=== PATIENT | male | born 1990 | race Caucasian/White ===

== ENCOUNTER 2016-08-02 13:15 | Emergency (ER) | payer BC ==
[~2016-08-02] VITALS: Ht 167.6 cm; Wt 55.3 kg
[~2016-08-02 13:15] MED LIST: INSU100I13 SQ; INSU100I17 SQ
--- NOTE | 2016-08-02 13:53 | PHYS DOC ---
Past Medical History Past Medical History: Diabetes-Type I Past Surgical History: No Surgical History Alcohol Use: Rarely Drug Use: Marijuana Social History Narrative: last use yesterday Adult General Chief Complaint Chief Complaint: BLOOD SUGAR PROBLEM HPI HPI 25-year-old male presenting to the emergency department with type 1 diabetes after having low blood sugars while working today. He reports taking glargine every morning. He also takes aspart as needed based on carbohydrates. He reports taking aspart insulin 10 units this morning with a meal. He was working outside when he suddenly felt confused dizzy and twitching. His parents brought him here today. They were able to give him a soda on the way and currently he is asymptomatic and feeling much better. He denies a history of suicidal or homicidal ideation. He denies intentionally taking extra insulin. Onset today. Location generalized. Duration intermittent. Alleviated by soda. Review of systems is negative for chest pain shortness of breath nausea vomiting fevers chills. All other review of systems is negative unless otherwise noted in history of present illness. Review of Systems Review of Systems SEE ABOVE. Allergies Allergies Allergies Coded Allergies Type Severity Reaction Last Updated Verified No Known Drug Allergies 10/09/14 No Physical Exam Physical Exam Constitutional: Well developed, well nourished, no acute distress, non-toxic appearance. Normal physical exam. HENT: Normocephalic, atraumatic, bilateral external ears normal, oropharynx moist, no oral exudates, nose normal. [] Eyes: PERRLA, EOMI, conjunctiva normal, no discharge. [] Neck: Normal range of motion, no tenderness, supple, no stridor. [] Cardiovascular:Heart rate regular rhythm, no murmur [] Lungs & Thorax: Bilateral breath sounds clear to auscultation [] Abdomen: Bowel sounds normal, soft, no tenderness, no masses, no pulsatile masses. [] Skin: Warm, dry, no erythema, no rash. [] Back: No tenderness, no CVA tenderness. [] Extremities: No tenderness, no cyanosis, no clubbing, ROM intact, no edema. [] Neurologic: Alert and oriented X 3, normal motor function, normal sensory function, no focal deficits noted. [] Psychologic: Affect normal, judgement normal, mood normal. [] Current Patient Data Vital Signs Vital Signs Date Time Temp Pulse Resp B/P Pulse Ox O2 Delivery O2 Flow Rate FiO2 3/25/17 13:28 97.8 82 20 158/88 100 Room Air 97.8 Lab Values Laboratory Tests Test 08/02/16 14:59 Glucose (Fingerstick) 235mg/dL (70-99) H EKG EKG [] Radiology/Procedures Radiology/Procedures [] Course & Med Decision Making Course & Med Decision Making Pertinent Labs and Imaging studies reviewed. (See chart for details) [] 25-year-old male presenting to the emergency department today with an episode of likely hypoglycemia. He had improved prior to arrival. Triage vital signs showed mild hypertension otherwise unremarkable. Physical exam unremarkable. Blood glucose obtained in the emergency department was improved. Patient was given a meal here in the emergency department subsequent discharged home to follow up with PCP over 2-3 days. Dragon Disclaimer Dragon Disclaimer This electronic medical record was generated, in whole or in part, using a voice recognition dictation system. Departure Departure Impression: Primary Impression: Hypoglycemia Disposition: HOME, SELF-CARE Condition: STABLE Referrals: NO PCP (PCP) ELSA BRUNO MD Patient Instructions: Diabetes and Foot Care, Diabetes, FAQs, How to Avoid Diabetes Problems, Hypoglycemia (Low Blood Sugar), Type 1 Diabetes Mellitus, Adult Additional Instructions: Thank you for allowing us to participate in your care today. Followup with your primary care physician in 3 days if your symptoms do not improve. If you do not have a primary care provider you can ask for a list of our primary care providers. Return to the emergency department you have any new or concerning findings. This should be evaluated by the primary care physician and any necessary consulting services for continued management within a few days after discharge. Return to emergency room if you have any new or concerning symptoms including but not limited to fever, chills, nausea, vomiting, intractable pain, any new rashes, chest pain, shortness of air, uncontrolled bleeding, difficulty breathing, and/or vision loss. You may have been prescribed medication that can change in your level of thinking and ability to operate machinery. These medications include hydrocodone and Ativan. Also, Benadryl has been known to do this as well. Be sure to check with your pharmacist and ask if the medications you've prescribed can affect your level of consciousness. I recommend not operating heavy machinery or driving while on medication such as these. IMMANUEL COLE MD Aug 02, 2016 13:53
[2016-08-02 15:06] VITALS: BP 163/85
== END 2016-08-02 15:25 | disposition home or self-care (01) ==
LOC: ER 13:15
DX: E10.649 Type 1 diabetes mellitus with hypoglycemia without coma (principal); F12.10 Cannabis abuse, uncomplicated
CPT/HCPCS: 82947; 99283; 99284

== ENCOUNTER 2016-09-09 07:52 | Inpatient (IN) | payer BC ==
[2016-09-09] VITALS (9 sets, daily range): BP systolic 89–118; BP diastolic 35–69
[~2016-09-09] VITALS: Ht 167.6 cm; Wt 56.7 kg
[2016-09-09] MEDS ORDERED: 0.9 % SODIUM CHLORIDE 10 ML DISP.SYRIN. IV PRN (08:15)
[2016-09-09] MEDS ORDERED: ONDANSETRON PF 4 MG/2 ML VIAL. IV ONE (08:15)
--- NOTE | 2016-09-09 08:16 | PHYS DOC ---
Past Medical History Past Medical History: Diabetes-Type I Past Surgical History: No Surgical History Alcohol Use: Rarely Drug Use: None Adult General Chief Complaint Chief Complaint: HYPERGLYCEMIA HPI HPI Patient is a 25 year old male who presents emergency room today with a complaint of "high blood sugar for 2-3 weeks and vomiting that began this morning". Patient is a type I diabetic who is typically on a dual regimen of insulin management. He states he's been on single regimen of Lantus for approximately 3 weeks. He states he began feeling ill/weak which is been progressive in nature for the past 5-6 days. Patient states he went to [facility] last night. He states that lab tests were drawn. On his account , he states that he did not receive any IV fluids or insulin. He states he was advised that he needed to be admitted to the hospital. Patient states he became upset as he thought that the management of his blood sugar was not being handled appropriately in the ER, so he left. Patient states that he began feeling nauseous and vomiting earlier this morning. He denies hematemesis or abdominal pain. He denies syncopal episodes or near syncope. He denies chest pain, palpitations, exertional dyspnea, orthopnea or PND. Patient does not currently have a primary care doctor as he is pending approval for . Review of Systems Review of Systems Constitutional: Denies fever or chills [] Eyes: Denies change in visual acuity, redness, or eye pain [] HENT: Denies nasal congestion or sore throat [] Respiratory: Denies cough or shortness of breath [] Cardiovascular: No additional information not addressed in HPI [] GI: Denies abdominal pain, nausea, vomiting, bloody stools or diarrhea [] : Denies dysuria or hematuria [] Musculoskeletal: Denies back pain or joint pain [] Integument: Denies rash or skin lesions [] Neurologic: Denies headache, focal weakness or sensory changes [] Endocrine: Denies polyuria or polydipsia [] Current Medications Current Medications Current Medications Medications (Trade) Dose Ordered Sig/Derrick Start Time Stop Time Status Last Admin Dose Admin Insulin Human Regular (Novolin R Iv Drip) 150 ml @ As Directed STK-MED ONCE 09/09/16 08:52 09/09/16 08:53 DC Ondansetron HCl 4 mg 4 mg 1X ONCE 09/09/16 08:15 09/09/16 08:16 DC 09/09/16 08:19 4 MG Sodium Bicarbonate 50 meq 1X ONCE 09/09/16 09:15 09/09/16 09:16 Sodium Chloride (Iv Sodium Chloride 0.9% 1000ml Bag) 1,000 ml @ 1,000 mls/hr Q1H 09/09/16 08:05 09/09/16 10:04 09/09/16 08:20 1,000 MLS/HR Sodium Chloride (Normal Saline Flush) 10 ml QSHIFT PRN 09/09/16 08:15 Allergies Allergies Allergies Coded Allergies Type Severity Reaction Last Updated Verified No Known Drug Allergies 10/09/14 No Physical Exam Physical Exam Constitutional: Well developed, well nourished, mild distress, non-toxic appearance. Acetone breath easily smelled. HENT: Normocephalic, atraumatic, bilateral external ears normal, oropharynx is tacky, no oral exudates, nose normal. Eyes: PERRLA, EOMI, conjunctiva normal, no discharge. [] Neck: Normal range of motion, no tenderness, supple, no stridor. [] Cardiovascular:Heart rate 128 with regular rhythm, no murmur Lungs & Thorax: There is no evidence of respiratory distress or respiratory fatigue. There is no posturing or sensory muscle use. Respiratory rate is 24. Lungs are clear to auscultation bilaterally with full inspiratory effort. Abdomen: Bowel sounds normal, soft, no tenderness, no masses, no pulsatile masses. Skin: Warm, dry, no erythema, no rash. [] Back: No tenderness, no CVA tenderness. [] Extremities: No tenderness, no cyanosis, no clubbing, ROM intact, no edema. Neurologic: Alert and oriented X 3, normal motor function, normal sensory function, no focal deficits noted. Psychologic: Affect normal, judgement normal, mood normal. [] Current Patient Data Vital Signs Vital Signs Date Time Temp Pulse Resp B/P Pulse Ox O2 Delivery O2 Flow Rate FiO2 09/09/16 07:57 98.0 120 18 138/81 99 Room Air 98.0 Lab Values Laboratory Tests Test 09/09/16 08:16 White Blood Count 19.4x10^3/uL (4.0-11.0) H Red Blood Count 5.40x10^6/uL (4.30-5.70) Hemoglobin 16.2g/dL (13.0-17.5) Hematocrit 50.4% (39.0-53.0) Mean Corpuscular Volume 93fL (79-100) Mean Corpuscular Hemoglobin 30pg (25-35) Mean Corpuscular Hemoglobin Concent 32g/dL (31-37) Red Cell Distribution Width 13.4% (11.5-14.5) Platelet Count 344x10^3/uL (140-400) Neutrophils (%) (Auto) 87% (31-73) H Lymphocytes (%) (Auto) 8% (24-48) L Monocytes (%) (Auto) 5% (0-9) Eosinophils (%) (Auto) 0% (0-3) Basophils (%) (Auto) 1% (0-3) Neutrophils # (Auto) 16.9x10^3uL (1.8-7.7) H Lymphocytes # (Auto) 1.5x10^3/uL (1.0-4.8) Monocytes # (Auto) 0.9x10^3/uL (0.0-1.1) Eosinophils # (Auto) 0.0x10^3/uL (0.0-0.7) Basophils # (Auto) 0.1x10^3/uL (0.0-0.2) Platelet Estimate Pending Urine Collection Type Unknown Urine Color Yellow Urine Clarity Clear Urine pH 5.0 Urine Specific [place] 1.025 Urine Protein Negativemg/dL (NEG-TRACE) Urine Glucose (UA) >=1000mg/dL (NEG) Urine Ketones (Stick) >=80mg/dL (NEG) Urine Blood Negative (NEG) Urine Nitrite Negative (NEG) Urine Bilirubin Negative (NEG) Urine Urobilinogen Dipstick 0.2mg/dL (0.2 mg/dL) Urine Leukocyte Esterase Negative (NEG) Urine RBC 0/HPF (0-2) Urine WBC 0/HPF (0-4) Urine Bacteria 0/HPF (0-FEW) Sodium Level 131mmol/L (136-145) L Potassium Level 5.5mmol/L (3.5-5.1) H Chloride Level 93mmol/L (98-107) L Carbon Dioxide Level 10mmol/L (21-32) *L Anion Gap 28 (6-14) H Blood Urea Nitrogen 22mg/dL (8-26) Creatinine 1.7mg/dL (0.7-1.3) H Estimated GFR (Cockcroft-Gault) 49.4 BUN/Creatinine Ratio 13 (6-20) Glucose Level 638mg/dL (70-99) *H Calcium Level 9.2mg/dL (8.5-10.1) Total Bilirubin 0.8mg/dL (0.2-1.0) Aspartate Amino Transferase (AST) 81U/L (15-37) H Alanine Aminotransferase (ALT) 262U/L (16-63) H Alkaline Phosphatase 208U/L (46-116) H Total Protein 8.4g/dL (6.4-8.2) H Albumin 4.0g/dL (3.4-5.0) Albumin/Globulin Ratio 0.9 (1.0-1.7) L Laboratory Tests 09/09/16 08:16 Laboratory Tests 09/09/16 08:16 EKG EKG [] Radiology/Procedures Radiology/Procedures [] Course & Med Decision Making Course & Med Decision Making Patient is in DKA. He is dehydrated with an elevated creatinine. He is hemodynamically stable and is overall medical condition is stable. Insulin drip was ordered as well as 2 Amps of sodium bicarbonate. 2 L of normal saline are being continuously infused here and he will stay on a maintenance IV solution of normal saline at 200 mL's per hour. Case was staffed with Dr. Barger. Patient will be admitted to the ICU for further management of his blood sugar. Dragon Disclaimer Dragon Disclaimer This electronic medical record was generated, in whole or in part, using a voice recognition dictation system. Departure Departure Impression: Primary Impression: DKA (diabetic ketoacidoses) Disposition: ADMITTED INPATIENT Admitting Physician: Felipa Barger Condition: STABLE Referrals: NO PCP (PCP) YADIRA IRELAND September 09, 2016 08:16
[2016-09-09] MEDS: IV NORMAL SALINE 1000ML BAG 1,000 ML IV SCH ×2 (08:20→09:05)
[2016-09-09 08:29] LABS: BASO # 0.1 x10^3/uL (0.0-0.2); BASO % 1 % (0-3); EOS % 0 % (0-3); HEMATOCRIT 50.4 % (39.0-53.0); HEMOGLOBIN 16.2 g/dL (13.0-17.5); LYMPH # 1.5 x10^3/uL (1.0-4.8); LYMPH % 8 % (24-48); MEAN CORPUSCULAR HEMOGLOBIN 30 pg (25-35); MEAN CORPUSCULAR HGB CONC 32 g/dL (31-37); MEAN CORPUSCULAR VOLUME 93 fL (79-100); MONO % 5 % (0-9); NEUT % 87 % (31-73); PLATELET COUNT 344 x10^3/uL (140-400); RED CELL DISTRIBUTION WIDTH 13.4 % (11.5-14.5); WHITE BLOOD COUNT 19.4 x10^3/uL (4.0-11.0)
[2016-09-09 08:32] LABS: BILIRUBIN,URINE NEGATIVE (NEG); GLUCOSE,URINE >=1000 mg/dL (NEG); NITRITE,URINE NEGATIVE (NEG); PROTEIN,URINE NEGATIVE (NEG-TRACE); UROBILINOGEN,URINE 0.2 mg/dL (0.2 mg/dL)
[2016-09-09 08:40] LABS: ALBUMIN/GLOBULIN RATIO 0.9 (1.0-1.7); CALCIUM 9.2 mg/dL (8.5-10.1); CREATININE 1.7 mg/dL (0.7-1.3); GFR 49.4; POTASSIUM 5.5 mmol/L (3.5-5.1); TOTAL BILIRUBIN 0.8 mg/dL (0.2-1.0); TOTAL PROTEIN 8.4 g/dL (6.4-8.2)
[2016-09-09 08:42] LABS: BACTERIA,URINE 0 /HPF (0-FEW); RBC,URINE 0 /HPF (0-2); WBC,URINE 0 /HPF (0-4)
[2016-09-09] MEDS ORDERED: INSULIN,REGULAR 150 UNIT DRIP 150 ML IV ONE ×2 (08:52→09:00)
--- NOTE | 2016-09-09 08:55 | ACF ---
Admission Forms Criteria DIABETES Clinical Indications for Admission to Inpatient Care (Place 'X' for any and all applicable criteria): Admission is indicated by presence of ALL (if I & II) or ANY ONE (if III or IV) of the following (1)(2)(3)(4): [X]I. Diabetes is uncontrolled as indicated by ANY ONE of the following: [ ]a) Diabetic ketoacidosis as indicated by ALL of the following (8): [ ]i) Hyperglycemia (eg, plasma glucose greater than 200 mg/ dL (11.1 mmol/L)) [ ]ii) Acidosis (eg, arterial pH less than 7.30, serum bicarbonate level less than 15 mEq/L (mmol/L)) [ ]iii) Moderate ketonuria or ketonemia [ ]b) Hyperglycemic hyperosmolar state as indicated by ALL of the following(9)(10): [ ]i) Neurologic dysfunction (eg, stupor, coma, hemiparesis , seizure)(13) [ ]ii) Plasma glucose greater than 600 mg/dL (33.3 mmol/L) [ ]iii) Serum osmolality greater than 320 mOsm/kg (mmol/kg) [X]c) Severe signs or symptoms secondary to hyperglycemia indicated by ANY ONE of the following: [ ]i) Altered mental status(10) [ ]ii) Significant hypovolemia or dehydration [ ]iii) Intractable nausea or vomiting [ ]iv) Unexplained fever or severe infection [X]v) Severe electrolyte abnormality (eg, hypokalemia, hyperkalemia, hypernatremia) [X]II. Management at other levels of care (Also use Diabetes: Observation Care as appropriate) is not feasible because of ANY ONE of the following: [X]a) Condition was not adequately corrected with treatment at other levels of care. [ ]b) Treatment at other levels of care is not appropriate because of condition severity (eg, hyperosmolar coma). [ ]III. Contraindications and/or Inappropriate clinical situations for Observational Care in patients with Diabetes, when ANY ONE of the following is required: [ ]a) Patient require specific diagnostic workup or therapeutic intervention 22 [ ]b) Patient with abnormal vital signs or altered mental status 23 [ ]IV. General contraindications and/or Inappropriate clinical situations for Observational Care in patients with Diabetes, when ANY ONE of the following is required: [ ]a) Prediction of prolongation of LOS based on ANY ONE of the following may be considered as a contraindication for observational care 2, 3, 4, 5, 6, 7, 8, 9, 10, 11 [ ]i) Age > 65 yrs. [ ]ii) Patient arriving by ambulance [ ]iii) Patient with high acuity [ ]iv) Patient requiring vital sign monitoring [ ]v) Patient on IV medication [ ]b) Systolic blood pressures 180mmHg 3,12 [ ]c) Patient with altered mental status including delirium and other alteration of consciousness, (3) [ ]d) Patient whose discharge disposition will be to a intermediate home or rehabilitation home should not be managed in Emergency Department Observation Unit. CMS rule requires 3 days hospital stay before such placement.3,13 [ ]e) Patient with failure to thrive due to broad array of etiologies 3,16,17 [ ]f) Inability to ambulate 3,14 Extended stay beyond goal length of stay may be needed for(3)(20): [ ]a) Treatment of precipitating causes [ ]b) Development of hypoglycemia [ ]c) Complications of treatment [ ]d) Complications of decompensated diabetes (eg, acute gastric dilatation, persistent metabolic or neurologic derangement) [ ]e) Active Comorbidities [ ]f) Older patients( 65 years or older) The original [employer] content created by [employer] has been revised. The portions of the content which have been revised are identified through the use of italic text or in bold,and [facility] has neither reviewed nor approved the modified material. All other unmodified content is copyright [employer]. Please see references footnoted in the original [facility] 2016 Admission Criteria Met?: Yes CANDY LYONS September 09, 2016 08:55
[2016-09-09] MEDS ORDERED: ONDANSETRON PF 4 MG/2 ML VIAL. IV PRN ×2 (09:15→14:45)
[2016-09-09] MEDS ORDERED: SODIUM BICARB ADULT 8.4% 50 MEQ/50 ML DISP.SYRIN. IV ONE (09:15)
[2016-09-09] MEDS ORDERED: DEXTROSE 50% 25 GM / 50ML DISP.SYRIN. IV PRN (09:15)
[2016-09-09 09:39] LABS: PLT ESTIMATE ADEQUATE (ADEQUATE)
[2016-09-09] MEDS ORDERED: IV NORMAL SALINE 1000ML BAG 1,000 ML IV SCH (10:00)
[2016-09-09] MEDS ORDERED: SODIUM BICARBONATE VIAL 50 MEQ in IV 1/2 NORMAL SALINE 1,000 ML IV PRN (11:09)
[2016-09-09] MEDS ORDERED: IV DEXTROSE 5 %-0.45 % NACL 1,000 ML IV SCH (11:12)
[2016-09-09] MEDS ORDERED: POTASSIUM CHLORIDE 10MEQ 100 ML IV PRN ×3 (11:15)
[2016-09-09] MEDS ORDERED: INSULIN REGULAR VIAL 150 UNIT in 0.9 % SODIUM CHLORIDE 150ML 150 ML IV PRN ×2 (11:15→15:00)
[2016-09-09 12:26] LABS: CREATININE 1.4 mg/dL (0.7-1.3); GFR 61.7; POTASSIUM 4.2 mmol/L (3.5-5.1)
[2016-09-09 12:32] LABS: ALBUMIN 3.2 g/dL (3.4-5.0); DIRECT BILIRUBIN 0.2 mg/dL (0.0-0.2); MAGNESIUM 2.1 mg/dL (1.8-2.4); PHOSPHORUS 3.2 mg/dL (2.6-4.7); TOTAL BILIRUBIN 0.5 mg/dL (0.2-1.0); TOTAL PROTEIN 6.8 g/dL (6.4-8.2)
[2016-09-09] MEDS ORDERED: IV DEXTROSE 5% - 0.9 % NACL 1,000 ML IV SCH (12:45)
[2016-09-09 12:55] LABS: BASE EXCESS COOX -8 mmol/L (-3-3); CARBON MONOXIDE 0.4 % (0.0-1.9); FIO2 COOX 21; HCO3 COOX 16 mmol/L (21-28); METHEMOGLOBIN 0.4 % (0.0-1.9); OXYHEMOGLOBIN 96.7 %; PCO2 COOX 28 mmHg (35-46); PO2 COOX 97 mmHg (85-108); SAT O2 COOX 98 % (92-99); TOTAL HEMOGLOBIN 14.2 g/dL
--- NOTE | 2016-09-09 14:42 | PDOC1 ---
History and Physical Date of Admission Date of Admission 09/09/16 Identification/Chief Complaint Chief Complaint N/V , weakness Problems: Source Source: Chart review, Patient History of Present Illness History of Present Illness 25yo M, DM1 , has insurance problem now, non compliance before, comes for N/V and weakness. Pt home insulin is 35u lantus at night and 10u aspart tid, and saying hba1c 1-2 years ago was 9. HE said he has one year insulin prescription from PCP, but likely 2/2 insurance issues, and not taking the regimen for a few weeks , and ran out of all aspart yesterday. N/V, weakness for 2 days. in ER, found DKA. clinically looks good in ICU now with insulin drip. Past Medical History Endocrine: Diabetes Past Surgical History Past Surgical History: No pertinent history Family History Family History: Hypertension Social History Smoke: No ALCOHOL: none Drugs: None Current Problem List Problem List Problems Medical Problems: (1) DKA (diabetic ketoacidoses) Status: Acute Current Medications Current Medications Current Medications Medications (Trade) Dose Ordered Sig/Derrick Start Time Stop Time Status Last Admin Dose Admin Dextrose 12.5 gm 12.5 gm PRN Q15MIN PRN 09/09/16 09:15 Dextrose/Sodium Chloride 1,000 ml @ 250 mls/hr Q4H 09/09/16 12:45 09/09/16 12:59 250 MLS/HR Insulin Human Regular (Novolin R Iv Drip) 150 ml @ As Directed STK-MED ONCE 09/09/16 08:52 09/09/16 08:53 DC Insulin Human Regular 150 unit/ Sodium Chloride 151.5 ml @ 0 mls/hr CONT PRN PRN 09/09/16 11:15 Insulin Human Regular/Sodium Chloride (Novolin R Vial/ Iv Normal Saline 150ml) 151.5 ml @ 0 mls/hr CONT PRN 09/09/16 15:00 09/09/16 15:00 DC Ondansetron HCl 4 mg 4 mg PRN Q8HRS PRN 09/09/16 09:15 09/10/16 09:14 Potassium Chloride (KCl Premix 10meq) 100 ml @ 100 mls/hr Q1H 09/09/16 14:00 09/09/16 15:59 Sodium Bicarbonate 50 meq/Sodium Chloride 1,050 ml @ 500 mls/hr Q2H6M PRN 09/09/16 11:09 Sodium Bicarbonate 50 meq 1X ONCE 09/09/16 09:15 09/09/16 09:16 DC 09/09/16 09:36 50 MEQ Sodium Chloride 1,000 ml @ 200 mls/hr Q5H 09/09/16 10:00 09/10/16 09:59 Sodium Chloride (Iv Sodium Chloride 0.9% 1000ml Bag) 1,000 ml @ 1,000 mls/hr Q1H 09/09/16 08:05 09/09/16 10:04 DC 09/09/16 08:20 1,000 MLS/HR Sodium Chloride 10 ml 10 ml QSHIFT PRN 09/09/16 08:15 Allergies Allergies Allergies Coded Allergies Type Severity Reaction Last Updated Verified No Known Drug Allergies 10/09/14 No ROS Review of System CONSTITUTIONAL: No fever or chills EYES: No recent changes SKIN: No rash or itching CARDIOVASCULAR: No chest pain, syncope, palpitations, or edema RESPIRATORY: No SOB or cough GASTROINTESTINAL: No nausea, vomiting or abdominal pain NEUROLOGICAL: No headaches or weakness ENDOCRINE: No cold or heat intolerance GENITOURINARY: No urgency or frequency of urination MUSCULOSKELETAL: No back pain or joint pain LYMPHATICS: No enlarged lymph nodes PSYCHIATRIC: No anxiety or depression Physical Exam Physical Exam GEN.: No apparent distress. Alert and oriented. HEENT: Head is normocephalic, atraumatic NECK: Supple. LUNGS: Clear to auscultation. HEART: RRR, S1, S2 present. Peripheral pulses intact ABDOMEN: Soft, nontender. Positive bowel sounds. EXTREMITIES: Without any cyanosis. NEUROLOGIC: Normal speech, normal tone PSYCHIATRIC: Normal affect, normal mood. SKIN: No ulcerations Vitals Vitals Vital Signs Date Time Temp Pulse Resp B/P Pulse Ox O2 Delivery O2 Flow Rate FiO2 09/09/16 13:45 98.0 115 92/35 99 98.0 09/09/16 13:30 16 Room Air Labs Labs Laboratory Tests Test 09/09/16 08:16 09/09/16 10:00 09/09/16 11:03 09/09/16 11:09 White Blood Count 19.4x10^3/uL (4.0-11.0) Red Blood Count 5.40x10^6/uL (4.30-5.70) Hemoglobin 16.2g/dL (13.0-17.5) Hematocrit 50.4% (39.0-53.0) Mean Corpuscular Volume 93fL (79-100) Mean Corpuscular Hemoglobin 30pg (25-35) Mean Corpuscular Hemoglobin Concent 32g/dL (31-37) Red Cell Distribution Width 13.4% (11.5-14.5) Platelet Count 344x10^3/uL (140-400) Neutrophils (%) (Auto) 87% (31-73) Lymphocytes (%) (Auto) 8% (24-48) Monocytes (%) (Auto) 5% (0-9) Eosinophils (%) (Auto) 0% (0-3) Basophils (%) (Auto) 1% (0-3) Neutrophils # (Auto) 16.9x10^3uL (1.8-7.7) Lymphocytes # (Auto) 1.5x10^3/uL (1.0-4.8) Monocytes # (Auto) 0.9x10^3/uL (0.0-1.1) Eosinophils # (Auto) 0.0x10^3/uL (0.0-0.7) Basophils # (Auto) 0.1x10^3/uL (0.0-0.2) Segmented Neutrophils % 89% (35-66) Band Neutrophils % 1% (0-9) Lymphocytes % 6% (24-48) Monocytes % 4% (0-10) Platelet Estimate Adequate (ADEQUATE) Urine Collection Type Unknown Urine Color Yellow Urine Clarity Clear Urine pH 5.0 Urine Specific [place] 1.025 Urine Protein Negativemg/dL (NEG-TRACE) Urine Glucose (UA) >=1000mg/dL (NEG) Urine Ketones (Stick) >=80mg/dL (NEG) Urine Blood Negative (NEG) Urine Nitrite Negative (NEG) Urine Bilirubin Negative (NEG) Urine Urobilinogen Dipstick 0.2mg/dL (0.2 mg/dL) Urine Leukocyte Esterase Negative (NEG) Urine RBC 0/HPF (0-2) Urine WBC 0/HPF (0-4) Urine Bacteria 0/HPF (0-FEW) Sodium Level 131mmol/L (136-145) Potassium Level 5.5mmol/L (3.5-5.1) Chloride Level 93mmol/L (98-107) Carbon Dioxide Level 10mmol/L (21-32) Anion Gap 28 (6-14) Blood Urea Nitrogen 22mg/dL (8-26) Creatinine 1.7mg/dL (0.7-1.3) Estimated GFR (Cockcroft-Gault) 49.4 BUN/Creatinine Ratio 13 (6-20) Glucose Level 638mg/dL (70-99) Calcium Level 9.2mg/dL (8.5-10.1) Total Bilirubin 0.8mg/dL (0.2-1.0) Aspartate Amino Transf (AST/SGOT) 81U/L (15-37) Alanine Aminotransferase (ALT/SGPT) 262U/L (16-63) Alkaline Phosphatase 208U/L (46-116) Total Protein 8.4g/dL (6.4-8.2) Albumin 4.0g/dL (3.4-5.0) Albumin/Globulin Ratio 0.9 (1.0-1.7) Ethyl Alcohol Level < 10mg/dL (0-10) Glucose (Fingerstick) 277mg/dL (70-99) 198mg/dL (70-99) O2 Saturation 98% (92-99) Arterial Blood pCO2 at Patient Temp 28mmHg (35-46) Arterial Blood pO2 at Patient Temp 97mmHg (85-108) Arterial Blood HCO3 16mmol/L (21-28) Arterial Blood Base Excess -8mmol/L (-3-3) Oxyhemoglobin 96.7% Methemoglobin 0.4% (0.0-1.9) Carbon Monoxide, Quantitative 0.4% (0.0-1.9) FiO2 21 Test 09/09/16 11:45 09/09/16 12:00 09/09/16 13:11 09/09/16 14:16 Sodium Level 139mmol/L (136-145) Potassium Level 4.2mmol/L (3.5-5.1) Chloride Level 104mmol/L (98-107) Carbon Dioxide Level 19mmol/L (21-32) Anion Gap 16 (6-14) Blood Urea Nitrogen 17mg/dL (8-26) Creatinine 1.4mg/dL (0.7-1.3) Estimated GFR (Cockcroft-Gault) 61.7 Glucose Level 158mg/dL (70-99) Calcium Level 8.0mg/dL (8.5-10.1) Phosphorus Level 3.2mg/dL (2.6-4.7) Magnesium Level 2.1mg/dL (1.8-2.4) Total Bilirubin 0.5mg/dL (0.2-1.0) Direct Bilirubin 0.2mg/dL (0.0-0.2) Aspartate Amino Transf (AST/SGOT) 46U/L (15-37) Alanine Aminotransferase (ALT/SGPT) 208U/L (16-63) Alkaline Phosphatase 156U/L (46-116) Total Protein 6.8g/dL (6.4-8.2) Albumin 3.2g/dL (3.4-5.0) Lipase 199U/L (73-393) Glucose (Fingerstick) 152mg/dL (70-99) 136mg/dL (70-99) 144mg/dL (70-99) Laboratory Tests Test 09/09/16 08:16 09/09/16 10:00 09/09/16 11:03 09/09/16 11:09 White Blood Count 19.4x10^3/uL (4.0-11.0) Red Blood Count 5.40x10^6/uL (4.30-5.70) Hemoglobin 16.2g/dL (13.0-17.5) Hematocrit 50.4% (39.0-53.0) Mean Corpuscular Volume 93fL (79-100) Mean Corpuscular Hemoglobin 30pg (25-35) Mean Corpuscular Hemoglobin Concent 32g/dL (31-37) Red Cell Distribution Width 13.4% (11.5-14.5) Platelet Count 344x10^3/uL (140-400) Neutrophils (%) (Auto) 87% (31-73) Lymphocytes (%) (Auto) 8% (24-48) Monocytes (%) (Auto) 5% (0-9) Eosinophils (%) (Auto) 0% (0-3) Basophils (%) (Auto) 1% (0-3) Neutrophils # (Auto) 16.9x10^3uL (1.8-7.7) Lymphocytes # (Auto) 1.5x10^3/uL (1.0-4.8) Monocytes # (Auto) 0.9x10^3/uL (0.0-1.1) Eosinophils # (Auto) 0.0x10^3/uL (0.0-0.7) Basophils # (Auto) 0.1x10^3/uL (0.0-0.2) Segmented Neutrophils % 89% (35-66) Band Neutrophils % 1% (0-9) Lymphocytes % 6% (24-48) Monocytes % 4% (0-10) Platelet Estimate Adequate (ADEQUATE) Urine Collection Type Unknown Urine Color Yellow Urine Clarity Clear Urine pH 5.0 Urine Specific [place] 1.025 Urine Protein Negativemg/dL (NEG-TRACE) Urine Glucose (UA) >=1000mg/dL (NEG) Urine Ketones (Stick) >=80mg/dL (NEG) Urine Blood Negative (NEG) Urine Nitrite Negative (NEG) Urine Bilirubin Negative (NEG) Urine Urobilinogen Dipstick 0.2mg/dL (0.2 mg/dL) Urine Leukocyte Esterase Negative (NEG) Urine RBC 0/HPF (0-2) Urine WBC 0/HPF (0-4) Urine Bacteria 0/HPF (0-FEW) Sodium Level 131mmol/L (136-145) Potassium Level 5.5mmol/L (3.5-5.1) Chloride Level 93mmol/L (98-107) Carbon Dioxide Level 10mmol/L (21-32) Anion Gap 28 (6-14) Blood Urea Nitrogen 22mg/dL (8-26) Creatinine 1.7mg/dL (0.7-1.3) Estimated GFR (Cockcroft-Gault) 49.4 BUN/Creatinine Ratio 13 (6-20) Glucose Level 638mg/dL (70-99) Calcium Level 9.2mg/dL (8.5-10.1) Total Bilirubin 0.8mg/dL (0.2-1.0) Aspartate Amino Transf (AST/SGOT) 81U/L (15-37) Alanine Aminotransferase (ALT/SGPT) 262U/L (16-63) Alkaline Phosphatase 208U/L (46-116) Total Protein 8.4g/dL (6.4-8.2) Albumin 4.0g/dL (3.4-5.0) Albumin/Globulin Ratio 0.9 (1.0-1.7) Ethyl Alcohol Level < 10mg/dL (0-10) Glucose (Fingerstick) 277mg/dL (70-99) 198mg/dL (70-99) O2 Saturation 98% (92-99) Arterial Blood pCO2 at Patient Temp 28mmHg (35-46) Arterial Blood pO2 at Patient Temp 97mmHg (85-108) Arterial Blood HCO3 16mmol/L (21-28) Arterial Blood Base Excess -8mmol/L (-3-3) Oxyhemoglobin 96.7% Methemoglobin 0.4% (0.0-1.9) Carbon Monoxide, Quantitative 0.4% (0.0-1.9) FiO2 21 Test 09/09/16 11:45 09/09/16 12:00 09/09/16 13:11 09/09/16 14:16 Sodium Level 139mmol/L (136-145) Potassium Level 4.2mmol/L (3.5-5.1) Chloride Level 104mmol/L (98-107) Carbon Dioxide Level 19mmol/L (21-32) Anion Gap 16 (6-14) Blood Urea Nitrogen 17mg/dL (8-26) Creatinine 1.4mg/dL (0.7-1.3) Estimated GFR (Cockcroft-Gault) 61.7 Glucose Level 158mg/dL (70-99) Calcium Level 8.0mg/dL (8.5-10.1) Phosphorus Level 3.2mg/dL (2.6-4.7) Magnesium Level 2.1mg/dL (1.8-2.4) Total Bilirubin 0.5mg/dL (0.2-1.0) Direct Bilirubin 0.2mg/dL (0.0-0.2) Aspartate Amino Transf (AST/SGOT) 46U/L (15-37) Alanine Aminotransferase (ALT/SGPT) 208U/L (16-63) Alkaline Phosphatase 156U/L (46-116) Total Protein 6.8g/dL (6.4-8.2) Albumin 3.2g/dL (3.4-5.0) Lipase 199U/L (73-393) Glucose (Fingerstick) 152mg/dL (70-99) 136mg/dL (70-99) 144mg/dL (70-99) VTE Prophylaxis Ordered VTE Prophylaxis Devices: Yes VTE Pharmacological Prophylaxi: Yes Assessment/Plan Assessment/Plan 1 DKA 2 sirs 2/2 1 3. HYPERkalemia 4. pseudohyponatremia with 1 5. casandra on CKD 2-3, dehydration, vasomotor 6. elevated transminitis 2/2 uncontrolled dm1 likely plan: icu care with insulin drip labs q4-6h ivf, npo for now check hba1c dvt ppx ARMOND KING MD September 09, 2016 14:42
[2016-09-09] MEDS ORDERED: ACETAMINOPHEN 325 MG TABLET. PO PRN (14:45)
[2016-09-09] MEDS: POTASSIUM CHLORIDE 10MEQ 100 ML IV SCH ×2 (15:00→15:14)
[2016-09-09] MEDS ORDERED: ENOXAPARIN 40 MG/0.4 ML SYRINGE. SQ SCH (15:00)
[2016-09-09 16:16] LABS: BARBITURATES NEG (NEG); BENZODIAZEPINES NEG (NEG); CANNABINOIDS POS (NEG); COCAINE NEG (NEG); METHADONE NEG (NEG); OPIATES NEG (NEG); PHENCYCLIDINE NEG (NEG)
[2016-09-09 16:29] LABS: CALCIUM 7.6 mg/dL (8.5-10.1); CREATININE 1.3 mg/dL (0.7-1.3); GFR 67.3; PHOSPHORUS 2.9 mg/dL (2.6-4.7)
[2016-09-09] MEDS ORDERED: INSULIN DETEMIR 300 UNITS/3 ML INSULN.PEN. SQ SCH (17:00)
[2016-09-09] MEDS: INSULIN ASPART 300 UNITS/3 ML INSULN.PEN SQ SCH ×2 (17:00→17:55)
[2016-09-10 02:51] VITALS: BP 105/47
[2016-09-10] MEDS: DEXTROSE 50% 25 GM / 50ML DISP.SYRIN. IV PRN ×2 (03:00→06:42)
[2016-09-10 06:27] LABS: CREATININE 1.1 mg/dL (0.7-1.3); GFR 81.6; POTASSIUM 3.3 mmol/L (3.5-5.1)
[2016-09-10 06:36] LABS: ALBUMIN 2.7 g/dL (3.4-5.0); DIRECT BILIRUBIN 0.2 mg/dL (0.0-0.2); TOTAL BILIRUBIN 0.4 mg/dL (0.2-1.0); TOTAL PROTEIN 5.5 g/dL (6.4-8.2)
[2016-09-10 07:00] VITALS: BP 109/64
[2016-09-10] MEDS ORDERED: DEXTROSE 50% 25 GM / 50ML DISP.SYRIN. IV ONE (07:00)
[2016-09-10] MEDS: INSULIN ASPART 300 UNITS/3 ML INSULN.PEN SQ SCH ×3 (07:30→12:00)
[2016-09-10] MEDS ORDERED: POTASSIUM CHLORIDE 20 MEQ TABLET.ER. PO ONE (10:00)
--- NOTE | 2016-09-10 10:31 | PDOC3 ---
Discharge Summary Visit Information Date of Admission: September 09, 2016 Date of Discharge: September 10, 2016 Admitting Diagnosis Comment: s/p DKA DM type 1 - missed insulin for 3 weeks Final Diagnosis Problems Medical Problems: (1) DKA (diabetic ketoacidoses) Status: Acute Brief Hospital Course Allergies Allergies Coded Allergies Type Severity Reaction Last Updated Verified No Known Drug Allergies 10/09/14 No Vital Signs Vital Signs Date Time Temp Pulse Resp B/P Pulse Ox O2 Delivery O2 Flow Rate FiO2 09/10/16 07:00 98.1 78 18 109/64 100 Room Air 98.1 Lab Results Laboratory Tests Test 09/09/16 08:16 09/09/16 10:00 09/09/16 11:03 09/09/16 11:09 White Blood Count 19.4x10^3/uL (4.0-11.0) Red Blood Count 5.40x10^6/uL (4.30-5.70) Hemoglobin 16.2g/dL (13.0-17.5) Hematocrit 50.4% (39.0-53.0) Mean Corpuscular Volume 93fL (79-100) Mean Corpuscular Hemoglobin 30pg (25-35) Mean Corpuscular Hemoglobin Concent 32g/dL (31-37) Red Cell Distribution Width 13.4% (11.5-14.5) Platelet Count 344x10^3/uL (140-400) Neutrophils (%) (Auto) 87% (31-73) Lymphocytes (%) (Auto) 8% (24-48) Monocytes (%) (Auto) 5% (0-9) Eosinophils (%) (Auto) 0% (0-3) Basophils (%) (Auto) 1% (0-3) Neutrophils # (Auto) 16.9x10^3uL (1.8-7.7) Lymphocytes # (Auto) 1.5x10^3/uL (1.0-4.8) Monocytes # (Auto) 0.9x10^3/uL (0.0-1.1) Eosinophils # (Auto) 0.0x10^3/uL (0.0-0.7) Basophils # (Auto) 0.1x10^3/uL (0.0-0.2) Segmented Neutrophils % 89% (35-66) Band Neutrophils % 1% (0-9) Lymphocytes % 6% (24-48) Monocytes % 4% (0-10) Platelet Estimate Adequate (ADEQUATE) Urine Collection Type Unknown Urine Color Yellow Urine Clarity Clear Urine pH 5.0 Urine Specific [place] 1.025 Urine Protein Negativemg/dL (NEG-TRACE) Urine Glucose (UA) >=1000mg/dL (NEG) Urine Ketones (Stick) >=80mg/dL (NEG) Urine Blood Negative (NEG) Urine Nitrite Negative (NEG) Urine Bilirubin Negative (NEG) Urine Urobilinogen Dipstick 0.2mg/dL (0.2 mg/dL) Urine Leukocyte Esterase Negative (NEG) Urine RBC 0/HPF (0-2) Urine WBC 0/HPF (0-4) Urine Bacteria 0/HPF (0-FEW) Sodium Level 131mmol/L (136-145) Potassium Level 5.5mmol/L (3.5-5.1) Chloride Level 93mmol/L (98-107) Carbon Dioxide Level 10mmol/L (21-32) Anion Gap 28 (6-14) Blood Urea Nitrogen 22mg/dL (8-26) Creatinine 1.7mg/dL (0.7-1.3) Estimated GFR (Cockcroft-Gault) 49.4 BUN/Creatinine Ratio 13 (6-20) Glucose Level 638mg/dL (70-99) Hemoglobin A1c 9.4% (4.8-5.6) Calcium Level 9.2mg/dL (8.5-10.1) Total Bilirubin 0.8mg/dL (0.2-1.0) Aspartate Amino Transf (AST/SGOT) 81U/L (15-37) Alanine Aminotransferase (ALT/SGPT) 262U/L (16-63) Alkaline Phosphatase 208U/L (46-116) Total Protein 8.4g/dL (6.4-8.2) Albumin 4.0g/dL (3.4-5.0) Albumin/Globulin Ratio 0.9 (1.0-1.7) Ethyl Alcohol Level < 10mg/dL (0-10) Glucose (Fingerstick) 277mg/dL (70-99) 198mg/dL (70-99) O2 Saturation 98% (92-99) Arterial Blood pCO2 at Patient Temp 28mmHg (35-46) Arterial Blood pO2 at Patient Temp 97mmHg (85-108) Arterial Blood HCO3 16mmol/L (21-28) Arterial Blood Base Excess -8mmol/L (-3-3) Oxyhemoglobin 96.7% Methemoglobin 0.4% (0.0-1.9) Carbon Monoxide, Quantitative 0.4% (0.0-1.9) FiO2 21 Test 09/09/16 11:45 09/09/16 12:00 09/09/16 13:10 09/09/16 13:11 Sodium Level 139mmol/L (136-145) Potassium Level 4.2mmol/L (3.5-5.1) Chloride Level 104mmol/L (98-107) Carbon Dioxide Level 19mmol/L (21-32) Anion Gap 16 (6-14) Blood Urea Nitrogen 17mg/dL (8-26) Creatinine 1.4mg/dL (0.7-1.3) Estimated GFR (Cockcroft-Gault) 61.7 Glucose Level 158mg/dL (70-99) Calcium Level 8.0mg/dL (8.5-10.1) Phosphorus Level 3.2mg/dL (2.6-4.7) Magnesium Level 2.1mg/dL (1.8-2.4) Total Bilirubin 0.5mg/dL (0.2-1.0) Direct Bilirubin 0.2mg/dL (0.0-0.2) Aspartate Amino Transf (AST/SGOT) 46U/L (15-37) Alanine Aminotransferase (ALT/SGPT) 208U/L (16-63) Alkaline Phosphatase 156U/L (46-116) Total Protein 6.8g/dL (6.4-8.2) Albumin 3.2g/dL (3.4-5.0) Lipase 199U/L (73-393) Glucose (Fingerstick) 152mg/dL (70-99) 136mg/dL (70-99) Nasal Screen MRSA (PCR) Negative (Negative) Test 09/09/16 14:16 09/09/16 14:45 09/09/16 15:19 09/09/16 16:05 Glucose (Fingerstick) 144mg/dL (70-99) 147mg/dL (70-99) Urine Opiates Screen Neg (NEG) Urine Methadone Screen Neg (NEG) Urine Barbiturates Neg (NEG) Urine Phencyclidine Screen Neg (NEG) Urine Amphetamine/Methamphetamine Neg (NEG) Urine Benzodiazepines Screen Neg (NEG) Urine Cocaine Screen Neg (NEG) Urine Cannabinoids Screen Pos (NEG) Urine Ethyl Alcohol Neg (NEG) Sodium Level 140mmol/L (136-145) Potassium Level 4.0mmol/L (3.5-5.1) Chloride Level 108mmol/L (98-107) Carbon Dioxide Level 23mmol/L (21-32) Anion Gap 9 (6-14) Blood Urea Nitrogen 12mg/dL (8-26) Creatinine 1.3mg/dL (0.7-1.3) Estimated GFR (Cockcroft-Gault) 67.3 Glucose Level 129mg/dL (70-99) Calcium Level 7.6mg/dL (8.5-10.1) Phosphorus Level 2.9mg/dL (2.6-4.7) Magnesium Level 2.0mg/dL (1.8-2.4) Test 09/09/16 17:47 09/09/16 21:16 09/09/16 22:42 09/10/16 02:55 Glucose (Fingerstick) 128mg/dL (70-99) 59mg/dL (70-99) 94mg/dL (70-99) 47mg/dL (70-99) Test 09/10/16 03:22 09/10/16 05:30 09/10/16 06:35 09/10/16 07:06 Glucose (Fingerstick) 105mg/dL (70-99) 28mg/dL (70-99) 137mg/dL (70-99) Sodium Level 138mmol/L (136-145) Potassium Level 3.3mmol/L (3.5-5.1) Chloride Level 106mmol/L (98-107) Carbon Dioxide Level 26mmol/L (21-32) Anion Gap 6 (6-14) Blood Urea Nitrogen 14mg/dL (8-26) Creatinine 1.1mg/dL (0.7-1.3) Estimated GFR (Cockcroft-Gault) 81.6 Glucose Level 48mg/dL (70-99) Calcium Level 8.0mg/dL (8.5-10.1) Total Bilirubin 0.4mg/dL (0.2-1.0) Direct Bilirubin 0.2mg/dL (0.0-0.2) Aspartate Amino Transf (AST/SGOT) 54U/L (15-37) Alanine Aminotransferase (ALT/SGPT) 160U/L (16-63) Alkaline Phosphatase 119U/L (46-116) Total Protein 5.5g/dL (6.4-8.2) Albumin 2.7g/dL (3.4-5.0) Test 09/10/16 08:04 Glucose (Fingerstick) 73mg/dL (70-99) Laboratory Tests Test 09/09/16 11:03 09/09/16 11:09 09/09/16 11:45 09/09/16 12:00 Glucose (Fingerstick) 198mg/dL (70-99) 152mg/dL (70-99) O2 Saturation 98% (92-99) Arterial Blood pCO2 at Patient Temp 28mmHg (35-46) Arterial Blood pO2 at Patient Temp 97mmHg (85-108) Arterial Blood HCO3 16mmol/L (21-28) Arterial Blood Base Excess -8mmol/L (-3-3) Oxyhemoglobin 96.7% Methemoglobin 0.4% (0.0-1.9) Carbon Monoxide, Quantitative 0.4% (0.0-1.9) FiO2 21 Sodium Level 139mmol/L (136-145) Potassium Level 4.2mmol/L (3.5-5.1) Chloride Level 104mmol/L (98-107) Carbon Dioxide Level 19mmol/L (21-32) Anion Gap 16 (6-14) Blood Urea Nitrogen 17mg/dL (8-26) Creatinine 1.4mg/dL (0.7-1.3) Estimated GFR (Cockcroft-Gault) 61.7 Glucose Level 158mg/dL (70-99) Calcium Level 8.0mg/dL (8.5-10.1) Phosphorus Level 3.2mg/dL (2.6-4.7) Magnesium Level 2.1mg/dL (1.8-2.4) Total Bilirubin 0.5mg/dL (0.2-1.0) Direct Bilirubin 0.2mg/dL (0.0-0.2) Aspartate Amino Transf (AST/SGOT) 46U/L (15-37) Alanine Aminotransferase (ALT/SGPT) 208U/L (16-63) Alkaline Phosphatase 156U/L (46-116) Total Protein 6.8g/dL (6.4-8.2) Albumin 3.2g/dL (3.4-5.0) Lipase 199U/L (73-393) Test 09/09/16 13:10 09/09/16 13:11 09/09/16 14:16 09/09/16 14:45 Nasal Screen MRSA (PCR) Negative (Negative) Glucose (Fingerstick) 136mg/dL (70-99) 144mg/dL (70-99) Urine Opiates Screen Neg (NEG) Urine Methadone Screen Neg (NEG) Urine Barbiturates Neg (NEG) Urine Phencyclidine Screen Neg (NEG) Urine Amphetamine/Methamphetamine Neg (NEG) Urine Benzodiazepines Screen Neg (NEG) Urine Cocaine Screen Neg (NEG) Urine Cannabinoids Screen Pos (NEG) Urine Ethyl Alcohol Neg (NEG) Test 09/09/16 15:19 09/09/16 16:05 09/09/16 17:47 09/09/16 21:16 Glucose (Fingerstick) 147mg/dL (70-99) 128mg/dL (70-99) 59mg/dL (70-99) Sodium Level 140mmol/L (136-145) Potassium Level 4.0mmol/L (3.5-5.1) Chloride Level 108mmol/L (98-107) Carbon Dioxide Level 23mmol/L (21-32) Anion Gap 9 (6-14) Blood Urea Nitrogen 12mg/dL (8-26) Creatinine 1.3mg/dL (0.7-1.3) Estimated GFR (Cockcroft-Gault) 67.3 Glucose Level 129mg/dL (70-99) Calcium Level 7.6mg/dL (8.5-10.1) Phosphorus Level 2.9mg/dL (2.6-4.7) Magnesium Level 2.0mg/dL (1.8-2.4) Test 09/09/16 22:42 09/10/16 02:55 09/10/16 03:22 09/10/16 05:30 Glucose (Fingerstick) 94mg/dL (70-99) 47mg/dL (70-99) 105mg/dL (70-99) Sodium Level 138mmol/L (136-145) Potassium Level 3.3mmol/L (3.5-5.1) Chloride Level 106mmol/L (98-107) Carbon Dioxide Level 26mmol/L (21-32) Anion Gap 6 (6-14) Blood Urea Nitrogen 14mg/dL (8-26) Creatinine 1.1mg/dL (0.7-1.3) Estimated GFR (Cockcroft-Gault) 81.6 Glucose Level 48mg/dL (70-99) Calcium Level 8.0mg/dL (8.5-10.1) Total Bilirubin 0.4mg/dL (0.2-1.0) Direct Bilirubin 0.2mg/dL (0.0-0.2) Aspartate Amino Transf (AST/SGOT) 54U/L (15-37) Alanine Aminotransferase (ALT/SGPT) 160U/L (16-63) Alkaline Phosphatase 119U/L (46-116) Total Protein 5.5g/dL (6.4-8.2) Albumin 2.7g/dL (3.4-5.0) Test 09/10/16 06:35 09/10/16 07:06 09/10/16 08:04 Glucose (Fingerstick) 28mg/dL (70-99) 137mg/dL (70-99) 73mg/dL (70-99) Brief Hospital Course Mr. Nixon is a 25 old male dx TYpe 1 since 2008, supposed to be on 34 lantus qdaily and novolog 10 TID, but missed for 3 weeks bec of finances, admitted for DKA., rsolved after overnight icu dka protocol, CAn be actually hypogolycemic, which translates to really non compliance that pushed him to dka PT seen and examined COunselled time 31 mins > 50% Discharge Information Condition at Discharge: Improved, Stable Disposition/Orders: D/C to Home Scheduled Insulin Aspart (Novolog Flexpen) 10 UNIT SQ TIDWMEALS (Reported) Insulin Aspart (Novolog Flexpen) 0-7 UNIT SQ TIDWMEALS (Reported) Insulin Glargine,Hum.rec.anlog (Lantus Solephraimar) 34 UNIT SQ DAILY AT 0900 ( Reported) SONAM BARNARD MD September 10, 2016 10:31
[2016-09-10 11:00] VITALS: BP 111/66
[2016-09-10 12:04] LABS: PH COOX 7.38 (7.35-7.45)
== END 2016-09-10 12:34 | disposition home or self-care (01) | DRG 637 ==
LOC: ER 07:52 → ED HOLD 08:57 → 1 WEST ICU 12:09 → 6 SOUTH 16:45
PROVIDERS: ADMIT Internal Medicine; ATTEND Internal Medicine
DX: E10.10 Type 1 diabetes mellitus with ketoacidosis without coma (principal); N17.0 Acute kidney failure with tubular necrosis; R65.10 Systemic inflammatory response syndrome (SIRS) of non-infectious origin without acute organ dysfunction; E10.22 Type 1 diabetes mellitus with diabetic chronic kidney disease; E87.5 Hyperkalemia; E86.0 Dehydration; R74.0 Nonspecific elevation of levels of transaminase and lactic acid dehydrogenase [LDH]; N18.3 Chronic kidney disease, stage 3 (moderate); Z82.49 Family history of ischemic heart disease and other diseases of the circulatory system; Z91.19 Patient's noncompliance with other medical treatment and regimen
CPT/HCPCS: 36415; 80048; 80053; 80076; 81001; 82805; 82947; 83036; 83690; 83735; 84100; 85007; 85027; 87040; 87086; 87641; 96365; 96375; G0480; G0481; J1650; J1815; J2405; J3480; J7030; J7042; 99285-25

== ENCOUNTER 2020-02-24 15:26 | Inpatient (IN) | payer BC ==
[~2020-02-24] VITALS: Ht 167.6 cm; Wt 56.0 kg
[2020-02-24 16:26] LABS: BASO # 0.1 x10^3/uL (0.0-0.2); BASO % 1 % (0-3); EOS # 0.1 x10^3/uL (0.0-0.7); EOS % 1 % (0-3); HEMATOCRIT 43.9 % (39.0-53.0); HEMOGLOBIN 14.8 g/dL (13.0-17.5); LYMPH # 1.5 x10^3/uL (1.0-4.8); LYMPH % 23 % (24-48); MEAN CORPUSCULAR HEMOGLOBIN 30 pg (25-35); MEAN CORPUSCULAR HGB CONC 34 g/dL (31-37); MEAN CORPUSCULAR VOLUME 89 fL (79-100); MONO # 0.4 x10^3/uL (0.0-1.1); MONO % 6 % (0-9); NEUT # 4.6 x10^3/uL (1.8-7.7); NEUT % 70 % (31-73); PLATELET COUNT 288 x10^3/uL (140-400); RED BLOOD COUNT 4.93 x10^6/uL (4.30-5.70); RED CELL DISTRIBUTION WIDTH 12.5 % (11.5-14.5); WHITE BLOOD COUNT 6.7 x10^3/uL (4.0-11.0)
[2020-02-24 16:50] LABS: CALCIUM 9.3 mg/dL (8.5-10.1); CREATININE 1.4 mg/dL (0.7-1.3); GFR 59.9; POTASSIUM 5.5 mmol/L (3.5-5.1)
[2020-02-24 16:53] LABS: ALBUMIN 4.5 g/dL (3.4-5.0); ALBUMIN/GLOBULIN RATIO 1.2 (1.0-1.7); TOTAL BILIRUBIN 0.9 mg/dL (0.2-1.0); TOTAL PROTEIN 8.3 g/dL (6.4-8.2)
[2020-02-24 17:14] LABS: BILIRUBIN,URINE NEGATIVE (NEG); CLARITY,URINE CLEAR; COLOR,URINE STRAW; NITRITE,URINE NEGATIVE (NEG); PROTEIN,URINE NEGATIVE (NEG-TRACE); UROBILINOGEN,URINE 0.2 mg/dL (0.2 mg/dL)
[2020-02-24 17:15] LABS: BACTERIA,URINE 0 /HPF (0-FEW); RBC,URINE RARE /HPF (0-2); WBC,URINE 0 /HPF (0-4)
--- NOTE | 2020-02-24 17:25 | RAD ---
KNEE RIGHT 4V History: Reason: pain / Spl. Instructions: / History: Technique: 4 views right knee. Comparison: None. Findings: Normal alignment. No fracture. No significant knee joint effusion. Soft tissues unremarkable. Impression: 1. No acute osseous abnormality. Electronically signed by: Kartik Kumar DO (02/24/2020 5:22 PM) [facility]
[2020-02-24] MEDS ORDERED: DEXTROSE 50% 25 GM / 50ML DISP.SYRIN. IV PRN (17:30)
[2020-02-24] MEDS ORDERED: INSULIN,REGULAR 100 UNIT DRIP 100 ML IV PRN (17:30)
[2020-02-24] MEDS ORDERED: IV NORMAL SALINE 1000ML BAG 1,000 ML IV SCH (17:36)
--- NOTE | 2020-02-24 17:36 | PDOC1 ---
History and Physical Date of Admission Date of Admission DATE: 02/24/20 TIME: 17:34 Identification/Chief Complaint Chief Complaint Weakness Source Source: Patient History of Present Illness History of Present Illness Mr Nixon is 29 yo type I diabetic, smoker who presents to the emergency room with weakness and nausea. He also complains of nausea polyuria polydipsia. Visual disturbances as well as right knee pain. No recent sick contacts. No dysuria no open wounds no cough COVID-19 contacts. He does note that he ran out of insulin last night. He has actually been taking NovoLog from a bowel that he got from a "friend of a friend". The insulin is never been refrigerated and he notes it was at least 4 months old. He has not seen a primary care doctor for years due to living [facility] to [facility]. $100 per month for insulin has kept him "strapped for álvarez." Glucose was too high to read this morning. He also has been having right knee pain for several weeks. He denies any injury. He is also having intermittent suicidal ideations with thoughts of overdosing on his insulin. Historically his home insulin is 35u lantus at night and 10u aspart tid, and saying hba1c 4 years ago was 9. Knee x-ray with no acute findings Labs significant for WBC 6.7, Hb 14.8, platelets 288, NA 127, K5.5, BUN 21, CR 1.4, lactate 2.2, glucose 898, AST 55, anion gap greater than 15 and positive for ketones in the urine. Admitted to ICU on insulin drip for further care. Past Medical History Endocrine: Diabetes Past Surgical History Past Surgical History: No pertinent history Family History Family History: Hypertension Social History Smoke: 1 pack per day ALCOHOL: rare Drugs: None Current Medications Current Medications Current Medications Insulin Human Regular 100 unit/ Sodium Chloride 101 ml @ 0 mls/hr CONT IV ; Start 02/24/20 at 17:30; Status UNV Dextrose (Dextrose 50%-Water Syringe) 12.5 gm PRN Q15MIN PRN IV LOW BLOOD SUGAR; Start 02/24/20 at 17:30; Status UNV Active Scripts Active Reported Novolog Flexpen (Insulin Aspart) 100 Unit/1 Ml Insuln.pen 0-7 Unit SQ TIDWMEALS Sliding Scale Insulin with meals: Take in addition to scheduled 10 units with meals, according to blood glucose. Blood glucose 70-150: None 151-200: 3 Units 201-250: 4 Units 251-300: 6 Units 301-350: 7 Units Lantus Solostar (Insulin Glargine,Hum.rec.anlog) 100 Unit/1 Ml Insuln.pen 34 Unit SQ DAILY AT 0900 Novolog Flexpen (Insulin Aspart) 100 Unit/1 Ml Insuln.pen 10 Unit SQ TIDWMEALS Allergies Allergies: Coded Allergies: No Known Drug Allergies (Unverified , 10/09/14) ROS General: YES: Fatigue, Malaise, Appetite; No: Chills, Night Sweats, Other PSYCHOLOGICAL ROS: YES: Anxiety, Depression, Suicidal ideation; No: Behavioral Disorder, Concentration difficultie, Decreased libido, Disorientation, Hallucinations, Hostility, Irritablity, Memory difficulties, Mood Swings, Obsessive thoughts, Physical abuse, Sexual abuse, Sleep disturbances, Other Eyes: Yes Blurry vision; No Decreased vision, No Double vision, No Dry eyes, No Excessive tearing, No Eye Pain, No Itchy Eyes, No Loss of vision, No Photophobia, No Scotomata, No Uses contacts, No Uses glasses, No Other HEENT: No: Heacaches, Visual Changes, Hearing change, Nasal congestion, Nasal discharge, Oral lesions, Sinus pain, Sore Throat, Epistaxis, Sneezing, Snoring, Tinnitus, Vertigo, Vocal changes, Other ALLERGY AND IMMUNOLOGY: No: Hives, Insect Bite Sensitivity, Itchy/Watery Eyes, Nasal Congestion, Post Nasal Drip, Seasonal Allergies, Other Hematological and Lymphatic: No: Bleeding Problems, Blood Clots, Blood Transfusions, Brusing, Night Sweats, Pallor, Swollen Lymph Nodes, Other ENDOCRINE: No: Breast Changes, Galactorrhea, Hair Pattern Changes, Hot Flashes, Malaise/lethargy, Mood Swings, Palpitations, Polydipsia/polyuria, Skin Changes, Temperature Intolerance, Unexpected Weight Changes, Other Breast: No New/Changing Breast Lumps, No Nipple changes, No Nipple discharge, No Other Respiratory: No: Cough, Hemoptysis, Orthopnea, Pleuritic Pain, Shortness of breath, SOB with excertion, Sputum Changes, Stridor, Tachypnea, Wheezing, Other Cardiovascular: No Chest Pain, No Palpitations, No Orthopnea, No Paroxysmal Noc. Dyspnea, No Edema, No Lt Headedness, No Other Gastrointestinal: Yes Nausea, Yes Abdominal Pain; No Vomiting, No Diarrhea, No Constipation, No Melena, No Hematochezia, No Other Genitourinary: No Dysuria, No Frequency, No Incontinence, No Hematuria, No Retention, No Discharge, No Urgency, No Pain, No Flank Pain, No Other, No , No , No , No , No , No , No Musculoskeletal: No Gait Disturbance, No Joint Pain, No Joint Stiffness, No Joint Swelling, No Muscle Pain, No Muscular Weakness, No Pain In:, No Swelling In:, No Other Neurological: No Behavorial Changes, No Bowel/Bladder ControlChng, No Confusion, No Dizziness, No Gait Disturbance, No Headaches, No Impaired Coord/balance, No Memory Loss, No Numbness/Tingling, No Seizures, No Speech Problems, No Tremors, No Visual Changes, No Weakness, No Other Skin: No Dry Skin, No Eczema, No Hair Changes, No Lumps, No Mole Changes, No Mottling, No Nail Changes, No Pruritus, No Rash, No Skin Lesion Changes, No Other, No Acne Physical Exam General: Alert, Oriented X3, Cooperative, moderate distress HEENT: Atraumatic, PERRLA, EOMI, Mucous membr. moist/pink Lungs: Clear to auscultation, Normal air movement Heart: S1S2, RRR, no thrills, no rubs, no gallops, no murmurs Abdomen: Normal bowel sounds, Soft, No tenderness, No hepatosplenomegaly, No masses Rectal Exam: not examined Extremities: No clubbing, No cyanosis, No edema, Normal pulses, Other (Right knee swollen, tender, not warm or red) Skin: No rashes, No breakdown, No significant lesion Neuro: Normal gait, Normal speech, Strength at 5/5 X4 ext, Normal tone, Sensation intact, Cranial nerves 3-12 NL, Reflexes 2+ Psych/Mental Status: Mental status NL, Mood NL Vitals Vitals Vital Signs Date Time Temp Pulse Resp B/P (MAP) Pulse Ox O2 Delivery O2 Flow Rate FiO2 02/24/20 15:46 97.9 106 18 150/71 (97) 99 Room Air 97.9 Labs Labs Laboratory Tests Test 02/24/20 15:50 02/24/20 16:05 Urine Collection Type Void Urine Color Straw Urine Clarity Clear Urine pH 5.0 (<5.0-8.0) Urine Specific [place] 1.025 (1.000-1.030) Urine Protein Negative mg/dL (NEG-TRACE) Urine Glucose (UA) >=1000 mg/dL (NEG) Urine Ketones (Stick) 40 mg/dL (NEG) Urine Blood Negative (NEG) Urine Nitrite Negative (NEG) Urine Bilirubin Negative (NEG) Urine Urobilinogen Dipstick 0.2 mg/dL (0.2 mg/dL) Urine Leukocyte Esterase Negative (NEG) Urine RBC Rare /HPF (0-2) Urine WBC 0 /HPF (0-4) Urine Squamous Epithelial Cells None /LPF Urine Bacteria 0 /HPF (0-FEW) White Blood Count 6.7 x10^3/uL (4.0-11.0) Red Blood Count 4.93 x10^6/uL (4.30-5.70) Hemoglobin 14.8 g/dL (13.0-17.5) Hematocrit 43.9 % (39.0-53.0) Mean Corpuscular Volume 89 fL (79-100) Mean Corpuscular Hemoglobin 30 pg (25-35) Mean Corpuscular Hemoglobin Concent 34 g/dL (31-37) Red Cell Distribution Width 12.5 % (11.5-14.5) Platelet Count 288 x10^3/uL (140-400) Neutrophils (%) (Auto) 70 % (31-73) Lymphocytes (%) (Auto) 23 % (24-48) Monocytes (%) (Auto) 6 % (0-9) Eosinophils (%) (Auto) 1 % (0-3) Basophils (%) (Auto) 1 % (0-3) Neutrophils # (Auto) 4.6 x10^3/uL (1.8-7.7) Lymphocytes # (Auto) 1.5 x10^3/uL (1.0-4.8) Monocytes # (Auto) 0.4 x10^3/uL (0.0-1.1) Eosinophils # (Auto) 0.1 x10^3/uL (0.0-0.7) Basophils # (Auto) 0.1 x10^3/uL (0.0-0.2) Sodium Level 127 mmol/L (136-145) Potassium Level 5.5 mmol/L (3.5-5.1) Chloride Level 89 mmol/L (98-107) Carbon Dioxide Level 23 mmol/L (21-32) Anion Gap 15 (6-14) Blood Urea Nitrogen 21 mg/dL (8-26) Creatinine 1.4 mg/dL (0.7-1.3) Estimated GFR (Cockcroft-Gault) 59.9 BUN/Creatinine Ratio 15 (6-20) Glucose Level 898 mg/dL (70-99) Calcium Level 9.3 mg/dL (8.5-10.1) Total Bilirubin 0.9 mg/dL (0.2-1.0) Aspartate Amino Transf (AST/SGOT) 55 U/L (15-37) Alanine Aminotransferase (ALT/SGPT) 35 U/L (16-63) Alkaline Phosphatase 121 U/L (46-116) Total Protein 8.3 g/dL (6.4-8.2) Albumin 4.5 g/dL (3.4-5.0) Albumin/Globulin Ratio 1.2 (1.0-1.7) Laboratory Tests Test 02/24/20 15:50 02/24/20 16:05 Urine Collection Type Void Urine Color Straw Urine Clarity Clear Urine pH 5.0 (<5.0-8.0) Urine Specific [place] 1.025 (1.000-1.030) Urine Protein Negative mg/dL (NEG-TRACE) Urine Glucose (UA) >=1000 mg/dL (NEG) Urine Ketones (Stick) 40 mg/dL (NEG) Urine Blood Negative (NEG) Urine Nitrite Negative (NEG) Urine Bilirubin Negative (NEG) Urine Urobilinogen Dipstick 0.2 mg/dL (0.2 mg/dL) Urine Leukocyte Esterase Negative (NEG) Urine RBC Rare /HPF (0-2) Urine WBC 0 /HPF (0-4) Urine Squamous Epithelial Cells None /LPF Urine Bacteria 0 /HPF (0-FEW) White Blood Count 6.7 x10^3/uL (4.0-11.0) Red Blood Count 4.93 x10^6/uL (4.30-5.70) Hemoglobin 14.8 g/dL (13.0-17.5) Hematocrit 43.9 % (39.0-53.0) Mean Corpuscular Volume 89 fL (79-100) Mean Corpuscular Hemoglobin 30 pg (25-35) Mean Corpuscular Hemoglobin Concent 34 g/dL (31-37) Red Cell Distribution Width 12.5 % (11.5-14.5) Platelet Count 288 x10^3/uL (140-400) Neutrophils (%) (Auto) 70 % (31-73) Lymphocytes (%) (Auto) 23 % (24-48) Monocytes (%) (Auto) 6 % (0-9) Eosinophils (%) (Auto) 1 % (0-3) Basophils (%) (Auto) 1 % (0-3) Neutrophils # (Auto) 4.6 x10^3/uL (1.8-7.7) Lymphocytes # (Auto) 1.5 x10^3/uL (1.0-4.8) Monocytes # (Auto) 0.4 x10^3/uL (0.0-1.1) Eosinophils # (Auto) 0.1 x10^3/uL (0.0-0.7) Basophils # (Auto) 0.1 x10^3/uL (0.0-0.2) Sodium Level 127 mmol/L (136-145) Potassium Level 5.5 mmol/L (3.5-5.1) Chloride Level 89 mmol/L (98-107) Carbon Dioxide Level 23 mmol/L (21-32) Anion Gap 15 (6-14) Blood Urea Nitrogen 21 mg/dL (8-26) Creatinine 1.4 mg/dL (0.7-1.3) Estimated GFR (Cockcroft-Gault) 59.9 BUN/Creatinine Ratio 15 (6-20) Glucose Level 898 mg/dL (70-99) Calcium Level 9.3 mg/dL (8.5-10.1) Total Bilirubin 0.9 mg/dL (0.2-1.0) Aspartate Amino Transf (AST/SGOT) 55 U/L (15-37) Alanine Aminotransferase (ALT/SGPT) 35 U/L (16-63) Alkaline Phosphatase 121 U/L (46-116) Total Protein 8.3 g/dL (6.4-8.2) Albumin 4.5 g/dL (3.4-5.0) Albumin/Globulin Ratio 1.2 (1.0-1.7) Images Images Right knee XR: Normal alignment. No fracture. No significant knee joint effusion. Soft tissues unremarkable. Impression: 1. No acute osseous abnormality. VTE Prophylaxis Ordered VTE Prophylaxis Devices: No VTE Pharmacological Prophylaxi: Yes Assessment/Plan Assessment/Plan A/P: DKA - admit to ICU now with insulin drip. Q 6hr BMP, replace K and phos Hyponatremia - likely related to hyperglycemia. will trend EMMA - vasomotor nephropathy from DKA, will hydrate Hyperkalemia - from EMMA, will give IVF and trend Transaminitis - likely from DKA,will trend Right knee pain and swelling - XR with no abnormalities, will check uric acid, topical voltaren Depression with suicidal ideation - psych to see, start cymbalta and prn trazodone for sleep Smoker - counseled on cessation FEN - NPO except sips PPX - heparin FULL CODE Dispo - ICU for DKA CC time 36 min Justifications for Admission Other Justification PRISCILLA BALDWIN MD Feb 24, 2020 17:36
[2020-02-24] MEDS ORDERED: IV 1/2 NORMAL SALINE 1,000 ML IV SCH (17:37)
--- NOTE | 2020-02-24 17:42 | PHYS DOC ---
Past Medical History Past Medical History: Diabetes-Type I Past Surgical History: No Surgical History Smoking Status: Current Every Day Smoker Alcohol Use: Rarely Drug Use: None General Adult EDM: Chief Complaint: HYPERGLYCEMIA HPI: HPI: Patient is 29-year-old type I diabetic who presents to the emergency room with multiple complaints. Patient ran out of his glucose last night. He has not seen a primary care doctor in last 4 years and that the last doctor he was seeing had been refilling his medication for him through the pharmacy. He states that they are refusing to refill it at this time because he is not seen then. He noticed his glucoses were going up quickly this morning. He also has been having right knee pain for several weeks. He denies any injury. He is also having intermittent suicidal ideations with thoughts of overdosing on his insulin. Review of Systems: Review of Systems: General: Denies fever, chills, sweats, fatigue Eyes: Denies drainage, blurred vision, eye redness HENT: Denies rhinorrhea, sore throat, earache Respiratory: Denies cough, shortness of breath, wheezing Cardiac: Denies edema, palpitations, chest pain GI: Denies abdominal pain, Nausea, vomiting MSK: Denies back pain, neck pain Skin: Denies rash, jaundice Neuro: Denies headache, dizziness Psychiatric: Denies HI. Reports suicidal ideations, depression Heart Score: Risk Factors: Risk Factors: DM, Current or recent (<one month) smoker, HTN, HLP, family history of CAD, obesity. Risk Scores: Score 0 - 3: 2.5% MACE over next 6 weeks - Discharge Home Score 4 - 6: 20.3% MACE over next 6 weeks - Admit for Clinical Observation Score 7 - 10: 72.7% MACE over next 6 weeks - Early Invasive Strategies Current Medications: Current Medications Medications (Trade) Dose Ordered Sig/Derrick Start Time Stop Time Status Last Admin Dose Admin Dextrose (Dextrose 50%-Water Syringe) 12.5 gm PRN Q15MIN PRN 02/24/20 17:30 Insulin Human Regular 100 ml @ 0 mls/hr CONT PRN 02/24/20 17:30 Allergies: Allergies: Allergies Coded Allergies Type Severity Reaction Last Updated Verified No Known Drug Allergies 10/09/14 No Physical Exam: PE: General: Awake, alert, NAD. Well Nourished, well hydrated. Cooperative HEENT: Atraumatic, EOMI, PERRL, airway patent, moist oral mucosa Neck: Supple, trachea midline Respiratory: CTA bilaterally, normal effort, no wheezing/crackles CV: Tachycardic, no murmur, cap refill <2 GI: Soft, nondistended, nontender, no masses MSK: No obvious deformities Skin: Warm, dry, intact Neuro: A&O x3, speech NL, sensory and motor grossly intact, no focal deficits Psych: Normal affect, normal mood, suicidal Current Patient Data: Labs: Laboratory Tests Test 02/24/20 15:50 02/24/20 16:05 Urine Collection Type Void Urine Color Straw Urine Clarity Clear Urine pH 5.0 (<5.0-8.0) Urine Specific [place] 1.025 (1.000-1.030) Urine Protein Negative mg/dL (NEG-TRACE) Urine Glucose (UA) >=1000 mg/dL (NEG) Urine Ketones (Stick) 40 mg/dL (NEG) Urine Blood Negative (NEG) Urine Nitrite Negative (NEG) Urine Bilirubin Negative (NEG) Urine Urobilinogen Dipstick 0.2 mg/dL (0.2 mg/dL) Urine Leukocyte Esterase Negative (NEG) Urine RBC Rare /HPF (0-2) Urine WBC 0 /HPF (0-4) Urine Squamous Epithelial Cells None /LPF Urine Bacteria 0 /HPF (0-FEW) White Blood Count 6.7 x10^3/uL (4.0-11.0) Red Blood Count 4.93 x10^6/uL (4.30-5.70) Hemoglobin 14.8 g/dL (13.0-17.5) Hematocrit 43.9 % (39.0-53.0) Mean Corpuscular Volume 89 fL (79-100) Mean Corpuscular Hemoglobin 30 pg (25-35) Mean Corpuscular Hemoglobin Concent 34 g/dL (31-37) Red Cell Distribution Width 12.5 % (11.5-14.5) Platelet Count 288 x10^3/uL (140-400) Neutrophils (%) (Auto) 70 % (31-73) Lymphocytes (%) (Auto) 23 % (24-48) L Monocytes (%) (Auto) 6 % (0-9) Eosinophils (%) (Auto) 1 % (0-3) Basophils (%) (Auto) 1 % (0-3) Neutrophils # (Auto) 4.6 x10^3/uL (1.8-7.7) Lymphocytes # (Auto) 1.5 x10^3/uL (1.0-4.8) Monocytes # (Auto) 0.4 x10^3/uL (0.0-1.1) Eosinophils # (Auto) 0.1 x10^3/uL (0.0-0.7) Basophils # (Auto) 0.1 x10^3/uL (0.0-0.2) Sodium Level 127 mmol/L (136-145) L Potassium Level 5.5 mmol/L (3.5-5.1) H Chloride Level 89 mmol/L (98-107) L Carbon Dioxide Level 23 mmol/L (21-32) Anion Gap 15 (6-14) H Blood Urea Nitrogen 21 mg/dL (8-26) Creatinine 1.4 mg/dL (0.7-1.3) H Estimated GFR (Cockcroft-Gault) 59.9 BUN/Creatinine Ratio 15 (6-20) Glucose Level 898 mg/dL (70-99) *H Calcium Level 9.3 mg/dL (8.5-10.1) Total Bilirubin 0.9 mg/dL (0.2-1.0) Aspartate Amino Transferase (AST) 55 U/L (15-37) H Alanine Aminotransferase (ALT) 35 U/L (16-63) Alkaline Phosphatase 121 U/L (46-116) H Total Protein 8.3 g/dL (6.4-8.2) H Albumin 4.5 g/dL (3.4-5.0) Albumin/Globulin Ratio 1.2 (1.0-1.7) Laboratory Tests 02/24/20 16:05 Laboratory Tests 02/24/20 16:05 Vital Signs: Vital Signs Date Time Temp Pulse Resp B/P (MAP) Pulse Ox O2 Delivery O2 Flow Rate FiO2 02/24/20 15:46 97.9 106 18 150/71 (97) 99 Room Air 97.9 EKG: EKG: [] Radiology/Procedures: Radiology/Procedures: [] Course & Med Decision Making: Course & Med Decision Making Pertinent Labs and Imaging studies reviewed. (See chart for details) Patient is 29-year-old male who presents to the emergency room with hyperg lycemia, knee pain, depression. Glucose initially read high upon arrival. This is concerning for possible DKA. Labs suggest the beginnings of DKA but patient does not currently have a gap. He is starting to have ketones. He was started on fluids and will be started on insulin drip. Knee x-ray was ordered. The PAT team will be consulted on the floor. Patient will be admitted for further care and evaluation. Dragon Disclaimer: Dragon Disclaimer: This electronic medical record was generated, in whole or in part, using a voice recognition dictation system. Departure Departure Impression: Primary Impression: DKA (diabetic ketoacidoses) Additional Impressions: Depression Knee pain Disposition: ADMITTED INPT THIS HOSP Condition: IMPROVED Referrals: JOSÉ MOY MD (PCP) NANETTE MARTINEZ MD Feb 24, 2020 17:42
[2020-02-24] MEDS ORDERED: ACETAMINOPHEN 325 MG TABLET. PO PRN (17:45)
[2020-02-24] MEDS ORDERED: POTASSIUM CHLORIDE 10MEQ 100 ML IV PRN ×3 (17:45)
[2020-02-24] MEDS ORDERED: 0.9 % SODIUM CHLORIDE 10 ML DISP.SYRIN. IV PRN (17:45)
[2020-02-24] MEDS: INSULIN REGULAR VIAL 100 UNIT in IV NORMAL SALINE 100ML 100 ML IV PRN (18:48)
[2020-02-24] MEDS ORDERED: traZODone 50 MG TABLET. PO PRN (19:15)
[2020-02-24] MEDS ORDERED: NICOTINE 14MG PATCH. TD PRN (19:15)
[2020-02-24 20:00] VITALS: BP 129/71
[2020-02-24] MEDS: IV DEXTROSE 5 %-0.45 % NACL 1,000 ML IV SCH ×2 (20:00→21:39)
[2020-02-24] MEDS: IV NORMAL SALINE 1000ML BAG 1,000 ML IV SCH ×3 (20:00→22:32)
--- NOTE | 2020-02-24 20:00 | NUR ---
pt admitted to room 109 at this time from ED. pt alert and oriented x4, VSS on room air, able to answer all admission questions without difficulty. pt oriented to room, unit routines, plan of care and call light; verbalizes understanding. pt requesting food, "I haven't eaten since yesterday." provided him with two box lunches and water per his request. call light in reach, will continue to closely monitor.
[2020-02-24 21:00] VITALS: BP 105/61
[2020-02-24] MEDS: DICLOFENAC SODIUM 1% TOPICAL GEL 100GM TUBE. TP SCH (21:33)
[2020-02-24 21:50] LABS: CREATININE 1.4 mg/dL (0.7-1.3); GFR 59.9; POTASSIUM 3.8 mmol/L (3.5-5.1)
[2020-02-24 21:54] LABS: MAGNESIUM 2.3 mg/dL (1.8-2.4); PHOSPHORUS 2.3 mg/dL (2.6-4.7)
[2020-02-24 22:00] VITALS: BP 109/63
[2020-02-24] MEDS: HEPARIN for SUB-Q USE 5,000 UNIT/ML VIAL. SQ SCH (22:00)
[2020-02-24 23:00] VITALS: BP 102/59
[2020-02-24] MEDS ORDERED: NORMAL SALINE IV ONE (23:00)
[2020-02-24] MEDS ORDERED: SODIUM PHOSPHATE IV ONE (23:00)
[2020-02-24] MEDS: POTASSIUM CHLORIDE 10MEQ 100 ML IV SCH (23:45)
[2020-02-25] VITALS (13 sets, daily range): BP systolic 90–122; BP diastolic 54–80
[2020-02-25] MEDS: POTASSIUM CHLORIDE 10MEQ 100 ML IV SCH ×3 (00:50→03:15)
[2020-02-25] MEDS: IV DEXTROSE 5% - 0.9 % NACL 1,000 ML IV SCH ×3 (01:53→10:04)
[2020-02-25] MEDS: INSULIN REGULAR VIAL 100 UNIT in IV NORMAL SALINE 100ML 100 ML IV PRN (01:57)
[2020-02-25] MEDS: HEPARIN for SUB-Q USE 5,000 UNIT/ML VIAL. SQ SCH ×2 (06:00→13:56)
--- NOTE | 2020-02-25 08:32 | NUR ---
This RN notified Dr. Cox that pt's GAP closed. He stated he would place orders. Will await these orders and continue to monitor pt.
[2020-02-25] MEDS ORDERED: DEXTROSE 50% 25 GM / 50ML DISP.SYRIN. IV PRN (08:45)
[2020-02-25] MEDS ORDERED: INSULIN LISPRO 300 UNITS/3 ML VIAL. SQ SCH ×3 (09:00→12:00)
[2020-02-25] MEDS: DICLOFENAC SODIUM 1% TOPICAL GEL 100GM TUBE. TP SCH (09:00)
[2020-02-25] MEDS ORDERED: DULoxetine HCL 30 MG CAPSULE.DR PO SCH (09:00)
[2020-02-25] MEDS ORDERED: FLU VACC QS 2020-21(6MOS+)/PF 0.5 ML SYRINGE. VAX IM ONE (09:00)
[2020-02-25] MEDS ORDERED: INSULIN GLARGINE SYRINGE. SQ ONE ×3 (09:30→11:00)
[2020-02-25 09:41] LABS: HEMATOCRIT 34.9 % (39.0-53.0); HEMOGLOBIN 12.1 g/dL (13.0-17.5); RED BLOOD COUNT 4.06 x10^6/uL (4.30-5.70); RED CELL DISTRIBUTION WIDTH 12.3 % (11.5-14.5); WHITE BLOOD COUNT 7.8 x10^3/uL (4.0-11.0)
[2020-02-25] MEDS ORDERED: INSU100I13 SQ (09:47)
[2020-02-25] MEDS ORDERED: INSU200I SQ (09:47)
--- NOTE | 2020-02-25 09:54 | PDOC ---
[employer] PROGRESS NOTE Date of Service DOS: DATE: 02/25/20 TIME: 09:54 Chief Complaint Chief Complaint A/P: DKA - GAP CLOSED Hyponatremia - likely related to hyperglycemia. resolved EMMA - vasomotor nephropathy from DKA, resolved Hyperkalemia - from EMMA, resolved Transaminitis - likely from DKA, resolved Right knee pain and swelling - XR with no abnormalities, normal uric acid, topical voltaren. Resolved with DKA resolution Depression with suicidal ideation - start cymbalta and prn trazodone for sleep Smoker - counseled on cessation FEN - ADA diet PPX - heparin FULL CODE Dispo - Monitor for 2 meals, then discharge home with self care. History of Present Illness History of Present Illness Mr Nixon is 29 yo type I diabetic, smoker who presents to the emergency room with weakness and nausea. He also complains of nausea polyuria polydipsia. Visual disturbances as well as right knee pain. No recent sick contacts. No dysuria no open wounds no cough COVID-19 contacts. He does note that he ran out of insulin last night. He has actually been taking NovoLog from a bowel that he got from a "friend of a friend". The insulin is never been refrigerated and he notes it was at least 4 months old. He has not seen a primary care doctor for years due to living [facility] to located within [facility]. $100 per month for insulin has kept him "strapped for álvarez." Glucose was too high to read this morning. He also has been having right knee pain for several weeks. He denies any injury. He is also having intermittent suicidal ideations with thoughts of overdosing on his insulin. Historically his home insulin is 32u lantus at night and 10u aspart tid, and saying hba1c 4 years ago was 9. Knee x-ray with no acute findings Labs significant for WBC 6.7, Hb 14.8, platelets 288, NA 127, K5.5, BUN 21, CR 1.4, lactate 2.2, glucose 898, AST 55, anion gap greater than 15 and positive for ketones in the urine. Admitted to ICU on insulin drip for further care. Gap closed overnight getting breakfast. NA 141, K4.4, Tommy 3.3, BUN 14, CR 1, glucose 126. He has no more knee pain feels much better. Started on Cymbalta and feels this may help his mood. Monofilament exam shows good sensation in bilateral feet. A1c and microalbumin creatinine ratio pending. He is interested in getting a Dexcom. I have given him refills for insulin. He is amenable to discharge today. Vitals/I&O Vitals/I&O: Vital Signs Date Time Temp Pulse Resp B/P (MAP) Pulse Ox O2 Delivery O2 Flow Rate FiO2 02/25/20 08:02 67 14 122/71 (88) 100 Room Air 02/25/20 07:00 97.7 97.7 I & O 02/24/20 02/24/20 02/25/20 15:00 23:00 07:00 Intake Total 1000 ml 2355 ml Output Total 1000 ml Balance 1000 ml 1355 ml Physical Exam General: Alert, Oriented X3, Cooperative, moderate distress Lungs: Clear Abdomen: Normal bowel sounds, Soft, No tenderness, No hepatosplenomegaly, No masses Extremities: No clubbing, No cyanosis, No edema, Normal pulses, Other (Right knee swollen, tender, not warm or red) Skin: No rashes, No breakdown, No significant lesion Labs Labs: Laboratory Tests Test 02/24/20 15:50 02/24/20 16:05 02/24/20 20:25 02/24/20 21:00 Urine Collection Type Void Urine Color Straw Urine Clarity Clear Urine pH 5.0 (<5.0-8.0) Urine Specific [place] 1.025 (1.000-1.030) Urine Protein Negative mg/dL (NEG-TRACE) Urine Glucose (UA) >=1000 mg/dL (NEG) Urine Ketones (Stick) 40 mg/dL (NEG) Urine Blood Negative (NEG) Urine Nitrite Negative (NEG) Urine Bilirubin Negative (NEG) Urine Urobilinogen Dipstick 0.2 mg/dL (0.2 mg/dL) Urine Leukocyte Esterase Negative (NEG) Urine RBC Rare /HPF (0-2) Urine WBC 0 /HPF (0-4) Urine Squamous Epithelial Cells None /LPF Urine Bacteria 0 /HPF (0-FEW) White Blood Count 6.7 x10^3/uL (4.0-11.0) Red Blood Count 4.93 x10^6/uL (4.30-5.70) Hemoglobin 14.8 g/dL (13.0-17.5) Hematocrit 43.9 % (39.0-53.0) Mean Corpuscular Volume 89 fL (79-100) Mean Corpuscular Hemoglobin 30 pg (25-35) Mean Corpuscular Hemoglobin Concent 34 g/dL (31-37) Red Cell Distribution Width 12.5 % (11.5-14.5) Platelet Count 288 x10^3/uL (140-400) Neutrophils (%) (Auto) 70 % (31-73) Lymphocytes (%) (Auto) 23 % (24-48) Monocytes (%) (Auto) 6 % (0-9) Eosinophils (%) (Auto) 1 % (0-3) Basophils (%) (Auto) 1 % (0-3) Neutrophils # (Auto) 4.6 x10^3/uL (1.8-7.7) Lymphocytes # (Auto) 1.5 x10^3/uL (1.0-4.8) Monocytes # (Auto) 0.4 x10^3/uL (0.0-1.1) Eosinophils # (Auto) 0.1 x10^3/uL (0.0-0.7) Basophils # (Auto) 0.1 x10^3/uL (0.0-0.2) Sodium Level 127 mmol/L (136-145) 134 mmol/L (136-145) Potassium Level 5.5 mmol/L (3.5-5.1) 3.8 mmol/L (3.5-5.1) Chloride Level 89 mmol/L (98-107) 96 mmol/L (98-107) Carbon Dioxide Level 23 mmol/L (21-32) 26 mmol/L (21-32) Anion Gap 15 (6-14) 12 (6-14) Blood Urea Nitrogen 21 mg/dL (8-26) 20 mg/dL (8-26) Creatinine 1.4 mg/dL (0.7-1.3) 1.4 mg/dL (0.7-1.3) Estimated GFR (Cockcroft-Gault) 59.9 59.9 BUN/Creatinine Ratio 15 (6-20) Glucose Level 898 mg/dL (70-99) 395 mg/dL (70-99) Uric Acid 5.7 mg/dL (3.5-7.2) Calcium Level 9.3 mg/dL (8.5-10.1) 9.0 mg/dL (8.5-10.1) Magnesium Level 2.2 mg/dL (1.8-2.4) 2.3 mg/dL (1.8-2.4) Total Bilirubin 0.9 mg/dL (0.2-1.0) Aspartate Amino Transf (AST/SGOT) 55 U/L (15-37) Alanine Aminotransferase (ALT/SGPT) 35 U/L (16-63) Alkaline Phosphatase 121 U/L (46-116) Total Protein 8.3 g/dL (6.4-8.2) Albumin 4.5 g/dL (3.4-5.0) Albumin/Globulin Ratio 1.2 (1.0-1.7) Glucose (Fingerstick) 519 mg/dL (70-99) Phosphorus Level 2.3 mg/dL (2.6-4.7) Test 02/24/20 21:34 02/24/20 22:34 02/24/20 23:50 02/25/20 00:51 Glucose (Fingerstick) 347 mg/dL (70-99) 252 mg/dL (70-99) 289 mg/dL (70-99) 114 mg/dL (70-99) Test 02/25/20 01:55 02/25/20 03:15 02/25/20 04:36 02/25/20 05:51 Glucose (Fingerstick) 83 mg/dL (70-99) 231 mg/dL (70-99) 133 mg/dL (70-99) 85 mg/dL (70-99) Test 02/25/20 07:07 02/25/20 08:06 02/25/20 09:28 02/25/20 09:30 Glucose (Fingerstick) 153 mg/dL (70-99) 149 mg/dL (70-99) 143 mg/dL (70-99) White Blood Count 7.8 x10^3/uL (4.0-11.0) Red Blood Count 4.06 x10^6/uL (4.30-5.70) Hemoglobin 12.1 g/dL (13.0-17.5) Hematocrit 34.9 % (39.0-53.0) Mean Corpuscular Volume 86 fL (79-100) Mean Corpuscular Hemoglobin 30 pg (25-35) Mean Corpuscular Hemoglobin Concent 35 g/dL (31-37) Red Cell Distribution Width 12.3 % (11.5-14.5) Platelet Count 225 x10^3/uL (140-400) Assessment and Plan Assessmemt and Plan Problems Medical Problems: (1) Depression Status: Acute (2) DKA (diabetic ketoacidoses) Status: Acute (3) Knee pain Status: Acute Comment Review of Relevant I have reviewed the following items melisa (where applicable) has been applied. Medications: Current Medications Medications (Trade) Dose Ordered Sig/Derrick Route PRN Reason Start Time Stop Time Status Last Admin Dose Admin Sodium Chloride 1,000 ml @ 1,000 mls/hr Q1H IV 02/24/20 17:36 02/24/20 18:35 DC 02/24/20 16:05 Sodium Chloride 1,000 ml @ 500 mls/hr Q2H IV 02/24/20 17:37 02/24/20 19:36 DC 02/24/20 20:00 Sodium Chloride 1,000 ml @ 250 mls/hr Q4H IV 02/24/20 17:39 02/25/20 01:48 DC 02/24/20 22:32 Insulin Human Regular 100 unit/ Sodium Chloride 101 ml @ 0 mls/hr CONT PRN PRN IV SEE COMMENTS 02/24/20 17:45 02/25/20 01:57 Diclofenac Sodium (Voltaren) 1 michael BID TP 02/24/20 21:00 02/24/20 21:33 Duloxetine HCl (Cymbalta) 30 mg DAILY PO 02/25/20 09:00 02/25/20 09:05 Sodium Phosphate 9 mmol/Sodium Chloride 253 ml @ 62.5 mls/hr 1X ONCE IV 02/24/20 23:00 02/25/20 03:02 DC 02/24/20 23:49 Potassium Chloride/Water 100 ml @ 100 mls/hr Q1H IV 02/24/20 23:00 02/25/20 02:59 DC 02/25/20 03:15 Dextrose/Sodium Chloride 1,000 ml @ 250 mls/hr Q4H IV 02/25/20 02:00 02/25/20 06:00 Justifications for Admission Other Justification PRISCILLA BALDWIN MD Feb 25, 2020 09:54
[2020-02-25 09:55] LABS: GFR 88.3; PHOSPHORUS 3.3 mg/dL (2.6-4.7); POTASSIUM 4.4 mmol/L (3.5-5.1)
[2020-02-25] MEDS ORDERED: DULO30CA2 PO (09:55)
--- NOTE | 2020-02-25 12:42 | PDOC3 ---
Discharge Summary Visit Information Date of Admission: Feb 24, 2020 Date of Discharge: Feb 25, 2020 Admitting Diagnosis: DKA, EMMA Final Diagnosis Problems Medical Problems: (1) Depression Status: Acute (2) DKA (diabetic ketoacidoses) Status: Acute (3) Knee pain Status: Acute Brief Hospital Course Allergies Allergies Coded Allergies Type Severity Reaction Last Updated Verified No Known Drug Allergies 10/09/14 No Vital Signs Vital Signs Date Time Temp Pulse Resp B/P (MAP) Pulse Ox O2 Delivery O2 Flow Rate FiO2 02/25/20 12:25 83 20 120/78 (92) 98 Room Air 02/25/20 07:00 97.7 97.7 Lab Results Laboratory Tests Test 02/24/20 15:50 02/24/20 16:05 02/24/20 20:25 02/24/20 21:00 Urine Collection Type Void Urine Color Straw Urine Clarity Clear Urine pH 5.0 (<5.0-8.0) Urine Specific [place] 1.025 (1.000-1.030) Urine Protein Negative mg/dL (NEG-TRACE) Urine Glucose (UA) >=1000 mg/dL (NEG) Urine Ketones (Stick) 40 mg/dL (NEG) Urine Blood Negative (NEG) Urine Nitrite Negative (NEG) Urine Bilirubin Negative (NEG) Urine Urobilinogen Dipstick 0.2 mg/dL (0.2 mg/dL) Urine Leukocyte Esterase Negative (NEG) Urine RBC Rare /HPF (0-2) Urine WBC 0 /HPF (0-4) Urine Squamous Epithelial Cells None /LPF Urine Bacteria 0 /HPF (0-FEW) White Blood Count 6.7 x10^3/uL (4.0-11.0) Red Blood Count 4.93 x10^6/uL (4.30-5.70) Hemoglobin 14.8 g/dL (13.0-17.5) Hematocrit 43.9 % (39.0-53.0) Mean Corpuscular Volume 89 fL (79-100) Mean Corpuscular Hemoglobin 30 pg (25-35) Mean Corpuscular Hemoglobin Concent 34 g/dL (31-37) Red Cell Distribution Width 12.5 % (11.5-14.5) Platelet Count 288 x10^3/uL (140-400) Neutrophils (%) (Auto) 70 % (31-73) Lymphocytes (%) (Auto) 23 % (24-48) Monocytes (%) (Auto) 6 % (0-9) Eosinophils (%) (Auto) 1 % (0-3) Basophils (%) (Auto) 1 % (0-3) Neutrophils # (Auto) 4.6 x10^3/uL (1.8-7.7) Lymphocytes # (Auto) 1.5 x10^3/uL (1.0-4.8) Monocytes # (Auto) 0.4 x10^3/uL (0.0-1.1) Eosinophils # (Auto) 0.1 x10^3/uL (0.0-0.7) Basophils # (Auto) 0.1 x10^3/uL (0.0-0.2) Sodium Level 127 mmol/L (136-145) 134 mmol/L (136-145) Potassium Level 5.5 mmol/L (3.5-5.1) 3.8 mmol/L (3.5-5.1) Chloride Level 89 mmol/L (98-107) 96 mmol/L (98-107) Carbon Dioxide Level 23 mmol/L (21-32) 26 mmol/L (21-32) Anion Gap 15 (6-14) 12 (6-14) Blood Urea Nitrogen 21 mg/dL (8-26) 20 mg/dL (8-26) Creatinine 1.4 mg/dL (0.7-1.3) 1.4 mg/dL (0.7-1.3) Estimated GFR (Cockcroft-Gault) 59.9 59.9 BUN/Creatinine Ratio 15 (6-20) Glucose Level 898 mg/dL (70-99) 395 mg/dL (70-99) Uric Acid 5.7 mg/dL (3.5-7.2) Calcium Level 9.3 mg/dL (8.5-10.1) 9.0 mg/dL (8.5-10.1) Magnesium Level 2.2 mg/dL (1.8-2.4) 2.3 mg/dL (1.8-2.4) Total Bilirubin 0.9 mg/dL (0.2-1.0) Aspartate Amino Transf (AST/SGOT) 55 U/L (15-37) Alanine Aminotransferase (ALT/SGPT) 35 U/L (16-63) Alkaline Phosphatase 121 U/L (46-116) Total Protein 8.3 g/dL (6.4-8.2) Albumin 4.5 g/dL (3.4-5.0) Albumin/Globulin Ratio 1.2 (1.0-1.7) Glucose (Fingerstick) 519 mg/dL (70-99) Phosphorus Level 2.3 mg/dL (2.6-4.7) Test 02/24/20 21:34 02/24/20 22:34 02/24/20 23:50 02/25/20 00:51 Glucose (Fingerstick) 347 mg/dL (70-99) 252 mg/dL (70-99) 289 mg/dL (70-99) 114 mg/dL (70-99) Test 02/25/20 01:55 02/25/20 03:15 02/25/20 04:36 02/25/20 05:51 Glucose (Fingerstick) 83 mg/dL (70-99) 231 mg/dL (70-99) 133 mg/dL (70-99) 85 mg/dL (70-99) Test 02/25/20 07:07 02/25/20 08:06 02/25/20 09:28 02/25/20 09:30 Glucose (Fingerstick) 153 mg/dL (70-99) 149 mg/dL (70-99) 143 mg/dL (70-99) White Blood Count 7.8 x10^3/uL (4.0-11.0) Red Blood Count 4.06 x10^6/uL (4.30-5.70) Hemoglobin 12.1 g/dL (13.0-17.5) Hematocrit 34.9 % (39.0-53.0) Mean Corpuscular Volume 86 fL (79-100) Mean Corpuscular Hemoglobin 30 pg (25-35) Mean Corpuscular Hemoglobin Concent 35 g/dL (31-37) Red Cell Distribution Width 12.3 % (11.5-14.5) Platelet Count 225 x10^3/uL (140-400) Sodium Level 141 mmol/L (136-145) Potassium Level 4.4 mmol/L (3.5-5.1) Chloride Level 108 mmol/L (98-107) Carbon Dioxide Level 28 mmol/L (21-32) Anion Gap 5 (6-14) Blood Urea Nitrogen 14 mg/dL (8-26) Creatinine 1.0 mg/dL (0.7-1.3) Estimated GFR (Cockcroft-Gault) 88.3 Glucose Level 126 mg/dL (70-99) Calcium Level 8.0 mg/dL (8.5-10.1) Phosphorus Level 3.3 mg/dL (2.6-4.7) Test 02/25/20 10:33 02/25/20 11:35 Glucose (Fingerstick) 126 mg/dL (70-99) 138 mg/dL (70-99) Laboratory Tests Test 02/24/20 15:50 02/24/20 16:05 02/24/20 20:25 02/24/20 21:00 Urine Collection Type Void Urine Color Straw Urine Clarity Clear Urine pH 5.0 (<5.0-8.0) Urine Specific [place] 1.025 (1.000-1.030) Urine Protein Negative mg/dL (NEG-TRACE) Urine Glucose (UA) >=1000 mg/dL (NEG) Urine Ketones (Stick) 40 mg/dL (NEG) Urine Blood Negative (NEG) Urine Nitrite Negative (NEG) Urine Bilirubin Negative (NEG) Urine Urobilinogen Dipstick 0.2 mg/dL (0.2 mg/dL) Urine Leukocyte Esterase Negative (NEG) Urine RBC Rare /HPF (0-2) Urine WBC 0 /HPF (0-4) Urine Squamous Epithelial Cells None /LPF Urine Bacteria 0 /HPF (0-FEW) White Blood Count 6.7 x10^3/uL (4.0-11.0) Red Blood Count 4.93 x10^6/uL (4.30-5.70) Hemoglobin 14.8 g/dL (13.0-17.5) Hematocrit 43.9 % (39.0-53.0) Mean Corpuscular Volume 89 fL (79-100) Mean Corpuscular Hemoglobin 30 pg (25-35) Mean Corpuscular Hemoglobin Concent 34 g/dL (31-37) Red Cell Distribution Width 12.5 % (11.5-14.5) Platelet Count 288 x10^3/uL (140-400) Neutrophils (%) (Auto) 70 % (31-73) Lymphocytes (%) (Auto) 23 % (24-48) Monocytes (%) (Auto) 6 % (0-9) Eosinophils (%) (Auto) 1 % (0-3) Basophils (%) (Auto) 1 % (0-3) Neutrophils # (Auto) 4.6 x10^3/uL (1.8-7.7) Lymphocytes # (Auto) 1.5 x10^3/uL (1.0-4.8) Monocytes # (Auto) 0.4 x10^3/uL (0.0-1.1) Eosinophils # (Auto) 0.1 x10^3/uL (0.0-0.7) Basophils # (Auto) 0.1 x10^3/uL (0.0-0.2) Sodium Level 127 mmol/L (136-145) 134 mmol/L (136-145) Potassium Level 5.5 mmol/L (3.5-5.1) 3.8 mmol/L (3.5-5.1) Chloride Level 89 mmol/L (98-107) 96 mmol/L (98-107) Carbon Dioxide Level 23 mmol/L (21-32) 26 mmol/L (21-32) Anion Gap 15 (6-14) 12 (6-14) Blood Urea Nitrogen 21 mg/dL (8-26) 20 mg/dL (8-26) Creatinine 1.4 mg/dL (0.7-1.3) 1.4 mg/dL (0.7-1.3) Estimated GFR (Cockcroft-Gault) 59.9 59.9 BUN/Creatinine Ratio 15 (6-20) Glucose Level 898 mg/dL (70-99) 395 mg/dL (70-99) Uric Acid 5.7 mg/dL (3.5-7.2) Calcium Level 9.3 mg/dL (8.5-10.1) 9.0 mg/dL (8.5-10.1) Magnesium Level 2.2 mg/dL (1.8-2.4) 2.3 mg/dL (1.8-2.4) Total Bilirubin 0.9 mg/dL (0.2-1.0) Aspartate Amino Transf (AST/SGOT) 55 U/L (15-37) Alanine Aminotransferase (ALT/SGPT) 35 U/L (16-63) Alkaline Phosphatase 121 U/L (46-116) Total Protein 8.3 g/dL (6.4-8.2) Albumin 4.5 g/dL (3.4-5.0) Albumin/Globulin Ratio 1.2 (1.0-1.7) Glucose (Fingerstick) 519 mg/dL (70-99) Phosphorus Level 2.3 mg/dL (2.6-4.7) Test 02/24/20 21:34 02/24/20 22:34 02/24/20 23:50 02/25/20 00:51 Glucose (Fingerstick) 347 mg/dL (70-99) 252 mg/dL (70-99) 289 mg/dL (70-99) 114 mg/dL (70-99) Test 02/25/20 01:55 02/25/20 03:15 02/25/20 04:36 02/25/20 05:51 Glucose (Fingerstick) 83 mg/dL (70-99) 231 mg/dL (70-99) 133 mg/dL (70-99) 85 mg/dL (70-99) Test 02/25/20 07:07 02/25/20 08:06 02/25/20 09:28 02/25/20 09:30 Glucose (Fingerstick) 153 mg/dL (70-99) 149 mg/dL (70-99) 143 mg/dL (70-99) White Blood Count 7.8 x10^3/uL (4.0-11.0) Red Blood Count 4.06 x10^6/uL (4.30-5.70) Hemoglobin 12.1 g/dL (13.0-17.5) Hematocrit 34.9 % (39.0-53.0) Mean Corpuscular Volume 86 fL (79-100) Mean Corpuscular Hemoglobin 30 pg (25-35) Mean Corpuscular Hemoglobin Concent 35 g/dL (31-37) Red Cell Distribution Width 12.3 % (11.5-14.5) Platelet Count 225 x10^3/uL (140-400) Sodium Level 141 mmol/L (136-145) Potassium Level 4.4 mmol/L (3.5-5.1) Chloride Level 108 mmol/L (98-107) Carbon Dioxide Level 28 mmol/L (21-32) Anion Gap 5 (6-14) Blood Urea Nitrogen 14 mg/dL (8-26) Creatinine 1.0 mg/dL (0.7-1.3) Estimated GFR (Cockcroft-Gault) 88.3 Glucose Level 126 mg/dL (70-99) Calcium Level 8.0 mg/dL (8.5-10.1) Phosphorus Level 3.3 mg/dL (2.6-4.7) Test 02/25/20 10:33 02/25/20 11:35 Glucose (Fingerstick) 126 mg/dL (70-99) 138 mg/dL (70-99) Brief Hospital Course Mr Nixon is 29 yo type I diabetic, smoker who presents to the emergency room with weakness and nausea. He also complains of nausea polyuria polydipsia. Visual disturbances as well as right knee pain. No recent sick contacts. No dysuria no open wounds no cough COVID-19 contacts. He does note that he ran out of insulin last night. He has actually been taking NovoLog from a bowel that he got from a "friend of a friend". The insulin is never been refrigerated and he notes it was at least 4 months old. He has not seen a primary care doctor for years due to living [facility] to [facility]. $100 per month for insulin has kept him "strapped for álvarez." Glucose was too high to read this morning. He also has been having right knee pain for several weeks. He denies any injury. He is also having intermittent suicidal ideations with thoughts of overdosing on his insulin. Historically his home insulin is 32u lantus at night and 10u aspart tid, and saying hba1c 4 years ago was 9. Knee x-ray with no acute findings Labs significant for WBC 6.7, Hb 14.8, platelets 288, NA 127, K5.5, BUN 21, CR 1.4, lactate 2.2, glucose 898, AST 55, anion gap greater than 15 and positive for ketones in the urine. Admitted to ICU on insulin drip for further care. Gap closed overnight getting breakfast. NA 141, K4.4, Tommy 3.3, BUN 14, CR 1, glucose 126. He has no more knee pain feels much better. Started on Cymbalta and feels this may help his mood. Monofilament exam shows good sensation in b ilateral feet. A1c and microalbumin creatinine ratio pending. He is interested in getting a Dexcom. I have given him refills for insulin. He is amenable to discharge today. Educated on diabetic care and follow-up. Problem list: DKA - GAP CLOSED Hyponatremia - likely related to hyperglycemia. resolved EMMA - vasomotor nephropathy from DKA, resolved Hyperkalemia - from EMMA, resolved Transaminitis - likely from DKA, resolved Right knee pain and swelling - XR with no abnormalities, normal uric acid, topical voltaren. Resolved with DKA resolution Depression with suicidal ideation - start cymbalta and prn trazodone for sleep Smoker - counseled on cessation Greater than 30 minutes spent on d/c Discharge Information Condition at Discharge: Improved Follow Up: Weeks (1) Disposition/Orders: D/C to Home Scheduled Duloxetine Hcl (Cymbalta) 30 Mg Capsule.dr, 30 MG PO DAILY for DM1/Mood for 90 Days, #90 Ref 3 Prescribed by: PRISCILLA BALDWIN MD on 02/25/20 0955 Insulin Aspart (Novolog Flexpen) 100 Unit/1 Ml Insuln.pen, 0-7 UNIT SQ TIDWMEALS for DIABETES, (Reported) Sliding Scale Insulin with meals: Take in addition to scheduled 10 units with meals, according to blood glucose. Blood glucose 70-150: None 151-200: 3 Units 201-250: 4 Units 251-300: 6 Units 301-350: 7 Units Entered as Reported by: PALMIRA STAUFFER on 10/10/14 1151 Insulin Glargine,Hum.rec.anlog (Lantus Solostar) 100 Unit/1 Ml Insuln.pen, 34 UNIT SQ DAILY AT 0900 for DIABETES for 90 Days, #30 Ref 3 Please dispense #90 pen needles BD fine 31g 5mm or covered pen for patient comfort Prescribed by: PRISCILLA BALDWIN MD on 02/25/20 0947 Insulin Lispro (Humalog Kwikpen) 200 Unit/1 Ml Insuln.pen, 10 UNIT SQ TIDWMEALS for DM1 for 90 Days, #30 Ref 3 Plus sliding scale Prescribed by: PRISCILLA BALDWIN MD on 02/25/20 0947 Discontinued Medications Insulin Aspart (Novolog Flexpen) 100 Unit/1 Ml Insuln.pen, 10 UNIT SQ TIDWMEALS for DIABETES, (Reported) Entered as Reported by: PALMIRA STAUFFER on 10/10/14 1141 Last Action: Converted on 02/25/20 0845 by PRISCILLA BALDWIN MD Justicifation of Admission Dx: Justifications for Admission: Justification of Admission Dx: Yes DKA: PRISCILLA VILLA MD Feb 25, 2020 12:42
[2020-02-25] MEDS ORDERED: INSU100I17 SQ (12:46)
--- NOTE | 2020-02-25 13:42 | NUR ---
Pt's FSBS 34. Pt was given 8 units of Humalog before lunch. Pt states he only had a couple bites and would be going to get lunch somewhere after he discharges. Pt is asymptomatic, states "I feel fine." Pt given 240 cc of orange juice. IV not in place due to discharge. Dr. Cox paged. Orders received to recheck FSBS.
--- NOTE | 2020-02-25 14:54 | NUR ---
Pt's FSBS 66. Pt ate chicken strips and mashed potatoes. He states he is going to eat out with family in approx 30 minutes after discharge. This RN notified Dr. Cox of FSBS and he stated pt is okay to discharge. Pt given education on S/S of hypoglycemia. Will discharge pt.
--- NOTE | 2020-02-25 15:04 | NUR ---
Pt left unit at approx 1500 by ambulation via private vehicle, accompanied by mother. Pt's IV removed without complication, VSS. Discharge paperwork discussed and sent with pt, all additional questions addressed. Mother at bedside during education. Pt belongings returned to pt.
[2020-02-26 12:09] LABS: CREAT RD UR 13.2 mg/dL (Not Estab.); MICRO CREAT RATIO <23 mg/g creat (0-29); MICROALB RD UR <3.0 ug/mL (Not Estab.)
== END 2020-02-25 15:06 | disposition home or self-care (01) | DRG 637 ==
LOC: ER 15:26 → 1 WEST ICU 18:00
PROVIDERS: ADMIT Internal Medicine; ATTEND Internal Medicine
DX: E10.10 Type 1 diabetes mellitus with ketoacidosis without coma (principal); N17.0 Acute kidney failure with tubular necrosis; E87.1 Hypo-osmolality and hyponatremia; R45.851 Suicidal ideations; E87.5 Hyperkalemia; F17.210 Nicotine dependence, cigarettes, uncomplicated; F32.9 Major depressive disorder, single episode, unspecified; Z79.4 Long term (current) use of insulin; Z82.49 Family history of ischemic heart disease and other diseases of the circulatory system; M25.561 Pain in right knee
CPT/HCPCS: 36415; 73564; 80048; 80053; 81001; 82043; 82570; 82962; 83735; 84100; 84550; 85025; 85027; 87040; 90471; 90686; 96360; 96361; 99285; J1815; J3480; J3490; J7030; J7042; J7050; G0378